=== PATIENT | male | born 1970 | race Two or more races ===

== ENCOUNTER 2025-02-28 09:25 | Inpatient (IN) | payer OTHER, SELFPAY ==
[2025-02-28] VITALS (9 sets, daily range): BP systolic 119–152; BP diastolic 79–97; PULSE 60–83; RESP 15–99; TEMP 36–37.3; O2SAT 96–100; BMI 28.5; BMI 28.3
--- NOTE | 2025-02-28 09:26 | PC.NURSE ---
PT ARRIVED BY AMBULANCE AT 0925 WITH C/O SUDDEN ONSET DIZZINESS AT 0730. DR. STANLEY IN ROOM TO EVALUATE PT AND PT STATING WOKE AT 0705 AND WAS DIZZY UPON GETTING OUT OF BED. HS PREVIOUS CVA. PT C/O FEELING UNSTEADY SITTING AND STANDING.
--- NOTE | 2025-02-28 09:34 | PD.EDDIZZY ---
ED Dizzyness RME/HPI General Chief Complaint: Dizziness Stated Complaint: SUDDEN ONSET DIZZINESS Time Seen by Provider: 02/28/25 09:35 Arrival date/time: 02/28/25 09:25 Limitations: no limitations RME / HPI RME / HPI Narrative: 54 year old male with history of TIA, CVA and underwent PFO closure surgery presents to the ED BIBA from home for evaluation of sudden onset dizziness beginning shortly after waking this morning. Patient states he woke at ~ 07:00 AM today and felt at his usual state of health, no dizziness. However, noted when he got up to use the restroom at ~ 07:10 AM, he suddenly became dizzy. Described as a room spinning sensation to the left and feeling unsteady on his feet. Additionally reported checking his watch that measures his heart rate during that time and was in the 50's. No falls reported. Denies fevers, recent illness, ear pain, chest pain, cough, shortness of breath, abdominal pain, vomiting, diarrhea, or other associated symptoms/complaints. Patient additionally reported after his PFO closure surgery he had a follow up echocardiogram 1 year ago and told it was closed. Also had a follow up appointment with drying room attendant 2 weeks ago and told everything looked good . Related Data Home Medications ?Medication ?Instructions ?Recorded ?Confirmed No Known Home Medications 01/26/22 01/26/22 Allergies Allergy/AdvReac Type Severity Reaction Status Date / Time No Known Allergies Allergy Verified 02/28/25 10:08 Review of Systems Review of Systems Systems Reviewed: All systems reviewed, normal except as documented Past Medical History Past Medical History NEUROLOGIC: Positive Cerebrovascular Accident CARDIAC: Positive Cardiac Arrhythmia; Negative Congestive Heart Failure RESPIRATORY: Negative Chronic Obstructive Pulmonary Disease (COPD) GENITOURINARY: Negative Renal Disease ENDOCRINE: Negative Diabetes Mellitus Type 1 or Diabetes Mellitus Type 2 Social History SMOKING STATUS: Never smoker ED Exam General Limitations: Present no limitations General appearance: Present alert and in no apparent distress Head Head exam: Present atraumatic, normocephalic and normal inspection Eye Eye exam: Present normal appearance, PERRL and EOMI; Absent nystagmus ENT ENT exam: Present normal exam, normal oropharynx and mucous membranes moist Neck Neck exam: Present normal inspection, full ROM and trachea midline Chest Chest inspection: Present normal inspection and symmetric chest wall rise Respiratory Respiratory exam: Present normal lung sounds bilaterally Cardiovascular Cardiovascular exam: Present regular rate, normal rhythm and normal heart sounds Abdominal Exam Abdominal exam: Present soft and normal bowel sounds Extremities Exam Extremities exam: Present normal inspection and full ROM Back Exam Back exam: Present normal inspection and full ROM Neurological Exam Neurological exam: Present alert, oriented X3 and CN II-XII intact; Absent motor sensory deficit Psychiatric Psychiatric exam: Present normal affect and normal mood Skin Skin exam: Present warm, dry, intact and normal color Course Quality Measures Suspected type of Stroke: Acute Ischemic (subacute right posterior frontal cva ) Last known well (date): 02/28/25 Last known well (time): 07:00 Tenecteplase given: Reason(s) TPA not given: H/O intracranial hemorrhage, neoplasm, AVM, or aneurysm not given stroke (Stroke alert activated at 09:29 AM. ) Orders Category Date Time Status Bedside Blood Glucose NOW Care 02/28/25 09:35 Active COVID-19 Screening Questionnaire NOW Care 02/28/25 10:20 Active Senior Analyst Programmer NOW Care 02/28/25 09:35 Active Continuous Pulse Oximetry NOW Care 02/28/25 09:35 Completed Decision to Admit X1 Care 02/28/25 10:20 Completed EKG (ED ONLY) *Do not use* NOW Care 02/28/25 09:35 Completed Insert IV NOW Care 02/28/25 09:35 Active NIH Stroke Scale now Care 02/28/25 09:35 Active NPO NOW Care 02/28/25 09:35 Active Neuro Check Q15MIN Care 02/28/25 09:35 Active Nurse Swallow Screen x1 Care 02/28/25 09:35 Active Consult to Neurology / Tele-Neurology Routine Cons 02/28/25 09:[address] angio stroke protocol Stat Exams 02/28/25 09:[address] stroke protocol Stat Exams 02/28/25 09:35 Completed EKG (ED Only) Stat Exams 02/28/25 09:35 Draft Alcohol, Blood Medical Stat Lab 02/28/25 08:45 Completed CBC Stat Lab 02/28/25 08:45 Completed Comprehensive Metabolic Panel Stat Lab 02/28/25 08:45 Completed Drug Screen,Urine Stat Lab 02/28/25 09:35 Ordered Magnesium Stat Lab 02/28/25 08:45 Completed Partial Thromboplastin Time Stat Lab 02/28/25 08:45 Completed Prothrombin Time with INR Stat Lab 02/28/25 08:45 Completed Troponin I Stat Lab 02/28/25 08:45 Completed Urinalysis Stat Lab 02/28/25 09:35 Ordered Urine Culture Stat Lab 02/28/25 09:35 Ordered Aspirin Med 02/28/25 10:19 Discontinued 325 mg PO X1 ONE Meclizine HCl [Antivert] Med 02/28/25 10:22 Discontinued 25 mg PO X1 ONE Ondansetron Inj [Zofran Inj] Med 02/28/25 09:35 Active 4 mg IVP Q4HR PRN Sodium Chloride 0.9% 1000 ml [Ns] 1,000 ml Med 02/28/25 09:45 Active IV 100 mls/hr Sodium Chloride 0.9% 1000 ml [Ns] 1,000 ml Med 02/28/25 09:45 Discontinued IV Q10H Vital Signs Vital signs: Vital Signs Temperature 98.5 F 02/28/25 09:30 Pulse Rate 74 02/28/25 09:30 Respiratory Rate 20 02/28/25 09:30 Blood Pressure 152/97 H 02/28/25 09:30 Pulse Oximetry (%) 98 02/28/25 09:30 Oxygen Delivery Method Room Air 02/28/25 09:30 Pulse ox is 98% on room air which is adequate. Dizziness MDM Narrative MDM Narrative:: Yeny Basilio am scribing for and in the presence of Dr. Patel. Patient data External records reviewed:: [facility] previous records (I reviewed ED Visit on 01/26/2022, diagnosed with TIA. ) and EMS form Clinical information provided by:: patient and EMS Social determinants that could affect healthcare access:: none Patient has the following chronic illnesses:: TIA, CVA and underwent PFO closure surgery How is presenting disease/condition affected by chronic disease/condition?: exacerbated by Evaluation data The following diagnostics were reviewed and interpreted by me:: lab results, radiology exam(s) and EKG tracing(s) (02/28/2025 @ 10:08 AM. Sinus rhythm, rate 61, no STEMI, MO 198 ms, QRS 97 ms, QT/QTc 419/423 ms. ) Lab and/or radiology exams considered but not ordered:: None Interpretation Summary: Ordering Physician: Date of Service: Procedure(s): Accession Number(s): cc: ~ CT scan of the head without intravenous contrast (axial sections with sagittal and coronal reformats) February 28, 2025 0940 hours Clinical history: Focal neuro deficit, stroke suspected. Dizziness No prior study is available for comparison. Findings: There is no evidence of intracranial hemorrhage, mass effect or midline shift. Encephalomalacia in the right temporoparietal region. There are periventricular white matter hypodensities, compatible with chronic small vessel ischemia. The ventricles, basal cisterns and sulci are within normal limits. The calvarium is unremarkable. The mastoid air cells are clear. Polyp versus cyst in the left maxillary sinus. Impression: No evidence of intracranial hemorrhage, mass effect or midline shift. If there are persistent clinical symptoms or additional clinical concerns, consider MRI. Encephalomalacia in the right temporoparietal region which related to chronic right middle cerebral artery territory infarct. Periventricular chronic small vessel ischemia and volume loss. Discussion Details: Results verbally communicated to : Dr. Patel at 10:03 AM 02/28/2025 Report Electronically Signed By: Eran Boogie 02/28/2025 10:12:29 AM [EST] Ordering Physician: Murray Patel MD Date of Service: 02/28/25 Procedure(s): CT angio stroke protocol Accession Number(s): [id number] cc: Murray Patel MD; Ronak Montoya MD; NO PRIMARY/FAMILY,PHYSICIAN~ Examination: CTA carotids with intravenous contrast CTA brain, head with intravenous contrast. 2-D sagittal, coronal reconstructions. 3-D reconstructions. Exam date and time: February 28, 2025 0943 hrs. Indications: Stroke alert, onset sudden dizziness this a.m. focal neurologic deficit, CT brain scan today demonstrates large old stroke in the right middle cerebral artery distribution CTDI: vol (mGy) 32.1 DLP: (mGycm) 517 Technique: Multiple CTA axial brain, head carotid images post intravenous contrast injection 100 cc, [id number]. 2-D sagittal, coronal reconstructions. 3-D reconstructions, 3-D post processing including vascular maximum intensity projection images. Low dose protocols were performed. One or more of the following dose reduction techniques were used; automated exposure control, adjustment of the mA and/or KV according to patient size, use of iterative reconstruction technique. Findings: 50% stenosis proximal 10 mm right vertebral artery Atretic left vertebral artery with no definite stenoses Common carotid arteries carotid bifurcations and internal carotid arteries in the neck demonstrate no significant stenoses Intracranial vertebral arteries basilar artery and posterior cerebral branches do fill Basilar artery is diffusely reduced in caliber Juxtasellar supraclinoid portions internal carotid arteries do fill as well as M1 segments middle cerebral arteries Decreased filling right middle cerebral artery trifurcation vessels consistent with the patient's large old infarct in the right middle cerebral artery distribution Anterior cerebral arteries demonstrate no large vessel occlusions Impression: 50% stenosis proximal 10 mm right vertebral artery Attenuated left vertebral artery without definite critical stenoses No significant common carotid carotid bifurcation or internal carotid artery stenoses in the neck Decreased filling right middle cerebral artery trifurcation branches consistent with patient's history large old infarct right middle cerebral artery distribution Basilar artery is diffusely reduced in caliber but not excluded No cerebral large vessel arterial occlusions Dictated By:Ronak Montoya MD Signed By:<Electronically signed by Ronak Montoya MD in OV>02/28/25 1030 Medications / Prescriptions Medications or Prescriptions considered but not ordered:: None Medication administrations:: Medication Administration History Sodium Chloride (Ns) 1,000 mls @ 100 mls/hr IV .Q10H MYNOR Stop: 03/30/25 09:44 Last Admin: 02/28/25 10:08 Dose: 100 mls/hr Documented By: WILMER Ondansetron HCl (Ondansetron Inj 2 Mg/Ml Inj 2 Ml) 4 mg IVP Q4HR PRN PRN Reason: NAUSEA OR VOMITING Stop: 03/30/25 09:34 Last Admin: 02/28/25 10:12 Dose: 4 mg Documented By: GM Discontinued Medications Aspirin (Aspirin 325 Mg Tablet) 325 mg PO X1 ONE Stop: 02/28/25 10:20 Last Admin: 02/28/25 10:38 Dose: 325 mg Documented By: WILMER Sodium Chloride (Ns) 1,000 mls @ 100 mls/hr IV Q10H MYNOR Stop: 03/30/25 09:44 Meclizine HCl (Meclizine Hcl 25 Mg Tablet) 25 mg PO X1 ONE Stop: 02/28/25 10:23 Last Admin: 02/28/25 10:38 Dose: 25 mg Documented By: WILMER See above Consultations Consultation(s) initiated? (list below): Yes Consultation #1 (Physician, Specialty, Details): I spoke with teleneurologist who reports dry head CT negative for ICH. Time: 10:05 Consultation #2 (Physician, Specialty, Details): I spoke with teleneurologist who reviewed CTs, reports patient had right posterior frontal lobe subacute stroke. Advised starting on Aspirin. Time: 10:08 Consultation #3 (Physician, Specialty, Details): I spoke with resident working with Dr. Morrell. Discussed patients PMHx, HPI, ED course, exam findings, labs, and radiology results. The hospitalist agree to accept the patient for admission. Time: 10:17 Diagnosis Most likely diagnosis given after review of the tests above:: Subacute right posterior frontal lobe CVA Admission Indicated Admission indicated?: indicated Admission Request Was there a request for admission?: Yes Admission Attestation Admission request attestation: Discussed case with [] from Hospitalist service regarding admission. Discussed patients ED course, exam findings, labs, and radiology results. The Hospitalist [agrees,declines] to accept the patient for admission. Disposition Plan Disposition Plan: Admit Critical Care Time Critical Care Time Critical Care Time: Yes Total Critical Care Time (min.): 45 Attestation: The high probability of sudden, clinically significant deterioration in the patient's condition required the highest level of my preparedness to intervene urgently. The services I provided to this patient were to treat and/or prevent clinically significant deterioration. Services included the following: chart data review, reviewing nursing notes and/or old charts, documentation time, help desk consultant collaboration regarding findings and treatment options, medication orders and management, direct patient care, vital sign assessments and ordering, interpreting and reviewing diagnostic studies and lab tests. Aggregate critical care time includes only time during which I was engaged in work directly related to the patient's care, as described above, whether at bedside or elsewhere in the Emergency Department. It did not include time spent performing other reported procedures or the services of residents, students, nurses or physician assistants. Discharge Plan Plan Patient Disposition: Admit Acute Care w/in Hospital Prescriptions/Referrals Prescriptions/Med Rec: No Action No Known Home Medications Problem List Clinical Impression: Acute cerebrovascular accident (CVA) Patient/Caregiver Discharge Instructions Print Language: Latvian Stand Alone Forms: [facility] Award Info., Patient Portal Info Letter
--- NOTE | 2025-02-28 09:35 | XR_ITS ---
Examination: CT brain head without contrast. 2-D sagittal coronal reconstructions Date and time of exam:0940 hrs. Comparison January 26, 2022 Indications: Stroke alert, onset dizziness, focal neurologic deficit today CTDI: vol (mGy):48.8 DLP: (mGycm):1166 Technique: Multiple CT axial sections of the brain have been obtained, 5 mm slice thickness. Contrast has not been administered. 2-D sagittal, coronal reconstructions have been obtained Low dose protocols were performed. One or more of the following dose reduction techniques were used; automated exposure control, adjustment of the mA and/or KV according to patient size, use of iterative reconstruction technique. Findings: No significant ventricular enlargement. Encephalomalacia consistent with large old infarct right middle cerebral artery distribution Intra-axial or extra-axial hemorrhage density is not seen. No mass effect or midline shift Basal cisterns are not remarkable. Fourth ventricle is midline. Cranial vault intact. Impression: Negative for acute hemorrhage, mass effect or midline shift
--- NOTE | 2025-02-28 09:35 | EKG_ITS ---
[facility] Test Date: 2025-02-28 Pat Name: DEZ GOOD Department: Room: - Gender: Male Development Technical Lead: : 1970 Requested By: Murray Steele Order Number: [id number] Reading MD: Murray Steele Measurements Intervals [place] Rate: 61 P: 37 NC: 198 QRS: 40 QRSD: 97 T: 48 QT: 419 QTc: 425 Interpretive Statements SINUS RHYTHM Compared to ECG 01/12/2024 17:50:02 No significant changes /store/S0/[id number]/ecg/[id number].pdf
[2025-02-28 09:54] LABS: Basophils % (Auto) 0 % (0-2.5); Eosinophils # (Auto) 0.1 Thou/mm3 (0.0-0.5); Eosinophils % (Auto) 1 % (0-10); Hemoglobin 16.9 g/dL (13.5-16.0); Immature Granulocytes % (Auto) 0 % (0-0); Immature Granulocytes Auto 0.01 Thou/mm3 (0.00-0.00); Lymphocytes # (Auto) 1.4 Thou/mm3 (1.0-4.8); Lymphocytes % (Auto) 26 % (10-50); Mean Corpuscular HGB Conc 34.5 g/dl (31.0-37.0); Mean Corpuscular Hemoglobin 33.2 pg (25.0-35.0); Mean Corpuscular Volume 96 fL (80-100); Monocytes # (Auto) 0.4 Thou/mm3 (0.0-0.8); Monocytes % (Auto) 7 % (0-12); Neutrophils # (Auto) 3.6 Thou/mm3 (1.8-7.7); Neutrophils % (Auto) 66 % (37-80); Nucleated Red Blood Cell % 0 /100 WBC (0); Platelet Count 191 Thou/mm3 (140-440); RDW Standard Deviation 44.8 fL (35.1-43.9); Red Blood Count 5.09 Miln/mm3 (4.50-5.90); White Blood Count 5.5 Thou/mm3 (3.8-10.6)
[2025-02-28] MEDS: SODIUM CHLORIDE 0.9% 1000 ML 1,000 ML 100 ML IV (10:08)
[2025-02-28] MEDS: ONDANSETRON INJ 2 MG/ML INJ 2 ML 4 MG IVP (10:12)
--- NOTE | 2025-02-28 10:13 | PRELIM_ITS ---
CT scan of the head without intravenous contrast (axial sections with sagittal and coronal reformats) February 28, 2025 0940 hours Clinical history: Focal neuro deficit, stroke suspected. Dizziness No prior study is available for comparison. Findings: There is no evidence of intracranial hemorrhage, mass effect or midline shift. Encephalomalacia in the right temporoparietal region. There are periventricular white matter hypodensities, compatible with chronic small vessel ischemia. The ventricles, basal cisterns and sulci are within normal limits. The calvarium is unremarkable. The mastoid air cells are clear. Polyp versus cyst in the left maxillary sinus. Impression: No evidence of intracranial hemorrhage, mass effect or midline shift. If there are persistent clinical symptoms or additional clinical concerns, consider MRI. Encephalomalacia in the right temporoparietal region which related to chronic right middle cerebral artery territory infarct. Periventricular chronic small vessel ischemia and volume loss. Discussion Details: Results verbally communicated to : Dr. Patel at 10:03 AM 02/28/2025 Report Electronically Signed By: Eran Boogie 02/28/2025 10:12:29 AM [EST]
--- NOTE | 2025-02-28 10:13 | PC.NURSE ---
PER DR. HILARIO, TELENEUROLOGIST, PT NOT A CANDIDATE FOR THROMBOLYTICS AT THIS TIME.
[2025-02-28 10:15] LABS: Alanine Aminotransferase 15 U/L (10-49); Albumin, Serum 4.1 gm/dL (3.5-5.0); Albumin/Globulin Ratio 1.3 (1.2-2.2); Alcohol, Blood Medical < 10.0 mg/dL (0-10.0); Alkaline Phosphatase 47 U/L (46-116); Anion Gap 9 (7-16); Aspartate Amino Transferase 26 U/L (0-34); BUN/Creatinine Ratio 9 Ratio (12-20); Bilirubin,Total 0.7 mg/dL (0.3-1.2); Blood Urea Nitrogen 9 mg/dL (9-23); Calcium 8.9 mg/dL (8.3-10.6); Calcium (Corrected) 8.9 mg/dL (8.5-10.1); Carbon Dioxide 27.2 mMol/L (20.0-31.0); Chloride 105 mMol/L (98-107); Estimated Creatinine Clearance 98.8 mL/min (>60); Globulin 3.1 gm/dL (2.3-3.5); Glucose 111 mg/dL (74-106); Magnesium 2.1 mg/dL (1.6-2.6); Osmolality,Calculated 280 (275-295); Potassium 4.6 mMol/L (3.4-5.1); Sodium 141 mMol/L (136-145); Total Protein 7.2 gm/dL (5.7-8.2); Troponin I 0.022 ng/mL (0.0-0.045); eGFR > 60 See Note
[2025-02-28 10:19] LABS: Partial Thromboplastin Time 28.4 Seconds (22.0-36.0); Prothrombin Time 11.3 Seconds (9.0-12.2)
--- NOTE | 2025-02-28 10:21 | ESCONSULT_ITS ---
Tele Neuro Consultation Consultation Date 02/28/25 Most Recent Vital Signs Last Vital Signs Temp 98.5 F 02/28/25 09:30 Pulse 74 02/28/25 09:30 Resp 20 02/28/25 09:30 BP 152/97 H 02/28/25 09:30 Pulse Ox 98 02/28/25 09:30 O2 Del Method Room Air 02/28/25 09:30 Laboratory-Coagulation Panel PT 11.3 Seconds (9.0-12.2) 02/28/25 08:45 INR 1.0 (0.9-1.3) 02/28/25 08:45 APTT 28.4 Seconds (22.0-36.0) 02/28/25 08:45 Consultation Narrative [facility] Tele[facility]urology Consult Services Patient Name:???Dom Wall Date of :???1970 Identification Number:??? Date of Service:???02/28/2025 09:31:03 Diagnosis:?A88.1 - Epidemic vertigo (Sudden Onset Vertigo) ?I63.89 - Cerebrovascular accident (CVA) due to other mechanism ([facility]) Impression: ?54YOM with a PMHx of a previous L cerebellar subdural hematoma as well as a suspected L occipital ischemic stroke 2021, patent foramen ovale s/p closure, presenting with acute onset severe positional vertigo. Exam grossly noncontributory; however, imaging demonstrated an age indeterminate (likely subacute to chronic) right frontal-temporal cortical hypodensity consistent with an ischemic stoke. On comparing imaging from 2021 and today, no evidence of any hypodensity or acute ischemic process involving the R hemisphere; however, timeframe inconsistent for today's symptoms given degree of hypodensity. Thus, recommend empirically treating as a new ischemic stroke with recommendation for admission and further stroke workup. Our recommendations are outlined below. Recommendations: ? Stroke/Telemetry Floor ? Neuro Checks (Q4) ? Bedside Swallow Eval ? DVT Prophylaxis ? IV Fluids, Normal Saline ? Head of Bed 30 Degrees ? Euglycemia and Avoid Hyperthermia (PRN Acetaminophen) ? Initiate or continue Aspirin 325 MG daily ?Goal normotensive with PRN medications for BP exceeding 180/110 ?MRI brain wo contrast ?Start [id number] daily for now ?Transthoracic Echo w bubble study ?TSH, A1C< Lipid panel, B12 ?Meclizine 25mg PO as needed for vertigo symptoms ?PT/OT eval Sign Out: ? Discussed with Emergency Department Provider Advanced Imaging: CTA Head and Neck Completed. LVO:No Patient is not a candidate for APURVA Metrics: Last Known Well: 02/28/2025 07:00:00 Dispatch Time: 02/28/2025 09:31:03 Arrival Time: 02/28/2025 09:25:00 Initial Response Time: 02/28/2025 09:39:45Symptoms: Sudden onset dizziness. Initial patient interaction: 02/28/2025 09:42:02 NIHSS Assessment Completed: 02/28/2025 09:48:10Patient is not a candidate for Thrombolytic. Thrombolytic Medical Decision: 02/28/2025 09:48:11Patient was not deemed candidate for Thrombolytic because of following reasons: History of previous intracranial hemorrhage, intracranial neoplasm . Significant head trauma or stroke in previous [address] Head: I personally reviewed all the CT images that were available to me and it showed: a RIGHT frontal-parietal cortical hypodensity consistent with a subacute ischemic stroke with no blood products or early ischemic changes Primary Provider Notified of Diagnostic Impression and Management Plan on: 02/28/2025 10:07:43 History of Present Illness:Patient is a 54 year old Male. Patient was brought by EMS for symptoms of Sudden onset dizziness. 54YOM with a PMHx of a previous LEFT cerebellar subdural hemorrhage 2021 with no residual deficits, previous PFO s/p closure, presenting to the [place] ED in the setting of sudden onset dizziness. Per patient, woke up today at 0700 and was asymptomatic while supine; on attempting to sit up, he noticed a sudden onset of room spinning sensation towards the L side, which improved significantly while patient was sitting quietly and still. Denies any unsteadiness or lightheadedness. Past Medical History: ?Stroke ?There is no history of Diabetes Mellitus ?There is no history of Atrial Fibrillation ?There is no history of Seizures Medications: No Anticoagulant use? Antiplatelet use:?Yes?ASA81 Reviewed EMR for current medications Allergies:? Reviewed Social History: Smoking: No Drug Use: No Family History: There is no family history of premature cerebrovascular disease pertinent to this consultation ROS : 14 Points Review of Systems was performed and was negative except mentioned in HPI. Past Surgical History: There Is No Surgical History Contributory To Today?s Visit Examination: BP(152/97),?Pulse(74),?Blood Glucose(123) 1A: Level of Consciousness - Alert; keenly responsive?+ 0 1B: Ask Month and Age - Both Questions Right?+ 0 1C: Blink Eyes & Squeeze Hands - Performs Both Tasks?+ 0 2: Test Horizontal Extraocular Movements - Normal?+ 0 3: Test Visual Chew - No Visual Loss?+ 0 4: Test Facial Palsy (Use Grimace if Obtunded) - Normal symmetry?+ 0 5A: Test Left Arm Motor Drift - No Drift for 10 Seconds?+ 0 5B: Test Right Arm Motor Drift - No Drift for 10 Seconds?+ 0 6A: Test Left Leg Motor Drift - No Drift for 5 Seconds?+ 0 6B: Test Right Leg Motor Drift - No Drift for 5 Seconds?+ 0 7: Test Limb Ataxia (FNF/Heel-Martinez) - No Ataxia?+ 0 8: Test Sensation - Normal; No sensory loss?+ 0 9: Test Language/Aphasia - Normal; No aphasia?+ 0 10: Test Dysarthria - Normal?+ 0 11: Test Extinction/Inattention - No abnormality?+ 0 NIHSS Score:?0 NIHSS Free Text :?No lateral or torsional nystagmus. No ataxia on heel to martinez or finger to nose testing bilaterally Pre-Morbid Modified [place] Scale:0 Points = No symptoms at all Spoke with :?Dr Patel This consult was conducted in real time using interactive audio and video technology. Patient was informed of the technology being used for this visit and agreed to proceed. Patient located in hospital and provider located at home/office setting. Patient is being evaluated for possible acute neurologic impairment and high probability of imminent or life-threatening deterioration. I spent total of 25 minutes providing care to this patient, including time for face to face visit via telemedicine, review of medical records, imaging studies and discussion of findings with providers, the patient and/or family. Dr Laith Hunter [facility] For Inpatient follow-up with [facility] physician please call [facility] at . As we are not an outpatient service for any post hospital discharge needs please contact the hospital for assistance. If you have any questions for the [facility] physicians or need to reconsult for clinical or diagnostic changes please contact us via [facility] at .
[2025-02-28] MEDS: Aspirin 325 MG TABLET PO (10:38)
[2025-02-28] MEDS: MECLIZINE HCL 25 MG TABLET PO (10:38)
[2025-02-28 11:41] LABS: Collection Type, Urine Catheter; Squamous Epithelial Cell,Urine 0 /hpf (0-5); WBC,Urine 0 /hpf (0-5)
[2025-02-28 11:53] LABS: Bilirubin,Urine Negative (Negative); Blood,Urine Negative (Negative); Clarity,Urine Clear (Clear/Hazy); Color,Urine Colorless (Lt Yel-Yel); Glucose, Urine Negative (Negative); Ketones,Urine Negative (Negative); Leukocyte Esterase,Urine Negative (Negative); Nitrite,Urine Negative (Negative); PH,Urine 7.5 (5.0-7.0); Protein,Urine Negative (Neg - Trace); RBC,Urine 4 /hpf (0-3); Specific Gravity,Urine 1.033 (1.001-1.035); Urobilinogen,Urine Negative mg/dL (0.0-1.0)
[2025-02-28 12:00] LABS: Amphetamine/Methamp Scrn,U Negative (Negative); Barbiturate Screen,Urine Negative (Negative); Benzodiazepines Screen,Urine Negative (Negative); Benzoylecgonine Screen, Ur Negative (Negative); Fentanyl Screen,Urine Negative (Negative); Opiate Screen,Urine Negative (Negative); THC Screen,Urine Negative (Negative)
--- NOTE | 2025-02-28 12:24 | PD.RESHP ---
Documentation for date of: 02/28/25 [facility] History of Present Illness History of present illness: Mr. Wall is a 54-year-old male with past medical history significant for ischemic stroke in 2021, history of TIA and patent foramen ovale s/p closure presents to the ED after having an episode of severe dizziness. Patient states he woke up this morning around 7 AM and when he got out of bed he experienced severe dizziness and felt like the entire room around him was spinning. Patient held onto furniture around the house therefore denies any syncopal episode and ground-level fall. Patient denies any acute changes in his visions other than Pt complains of flashing light in his right eye when eye is closed, denies any changes to his speech or weakness in upper or lower extremities. Pt also denies noticing any facial asymmetry. However patient states that for the past 2 to 3 days he have noticed that his right-sided vision was slightly blurry. Patient denies any other associated symptoms. Patient denies any chest pain, palpitations, any diarrhea or recent illness or any recent travels. Patient states he continues to have dizziness while sitting in the ED bed however it is worse when he stands up. Patient does have a history of ischemic stroke in 2022 however he denies any residual deficits other than frequent headaches which he states his neurologist told him that he would experience that. Pt has been regularly following up with neurology and has been taking aspirin 81mg daily. Patient is a Jehovah witness therefore requested strictly no blood transfusions and would like to be DNR and DNI. ED course In the ED patient's initial blood pressure was 152/97, pulse 74, respirations 20 and saturating on room air. CBC is unremarkable with the exception of hemoglobin 16.9, coagulation is within normal limits and chemistry, urinalysis and urine tox are all unremarkable. CT of head is negative for acute hemorrhage, mass effect or midline shift. Did show encephalomalacia consistent with large old infarct right middle cerebral artery distribution CTA of head and neck: 50% stenosis proximal 10 mm right vertebral artery, attenuated left vertebral artery without definitive critical stenosis, decreased filling right middle cerebral artery trifurcation branches consistent with patient's history of large old infarct right MCA distribution, basilar artery is diffusely reduced in caliber but not excluded EKG is sinus rhythm with no significant changes, rate 61 and QTc 425 Telemetry neurology telemetry neurologist was consulted in the ED In the ED patient was given 1 L bolus of normal saline, Zofran x 1, aspirin 325 mg p.o. x 1, meclizine 25 mg p.o. x1 PMH: Hx of ischemic stroke and TIA PSH: transcatheter PFO closure SH: Denies alcohol, tobacco or illicit drug use Home Meds: Aspirin 81mg daily Review of Systems Review of Systems Systems Reviewed: All systems reviewed, normal except as documented Exam Vital Signs Temp Pulse Resp BP Pulse Ox O2 Del Method 98.6 F 65 19 139/88 H 98 Room Air 02/28/25 12:20 02/28/25 12:20 02/28/25 12:20 02/28/25 12:20 02/28/25 12:20 02/28/25 12:20 Narrative Exam GENERAL: A&Ox3 . middle aged man, well groomed, pleasant and cooperative, Awake, Not in acute distress HEENT: Atraumatic, Normocephalic. mucous membranes moist. Eyes open, symmetrical, & clear HEART: Normal Heart Sounds LUNGS: Clear to auscultation with no wheezing or crackles. ABDOMEN: soft, non-distended, non-tender, bowel sounds heard, no guarding or rebound tenderness SKIN: No Rash or ecchymoses EXTREMITIES: No edema, tenderness, able to move all 4 extremities, pedal pulses palpated NEURO:? ? MENTAL STATUS:?AAOx3 ? LANG/SPEECH: Fluent, intact naming, repetition & comprehension ? CRANIAL NERVES: ? II: Pupils equal and reactive, no RAPD, blurry vision in the right eye and fundus ? III, IV, : EOM intact, no gaze preference or deviation ? V: normal ? VII: no facial asymmetry ? VIII: normal hearing to speech ? MOTOR: 5/5 in both upper and lower extremities ? SENSORY: Normal to touch, temperature & pin prick in all extremiteis ? COORD: Normal finger to nose and heel to soares, no tremor Results: Labs 03/01/25 04:49 03/01/25 04:49 Labs: Short CBC 02/28/25 Range/Units 08:45 WBC 5.5 (3.8-10.6) Thou/mm3 Hgb 16.9 H (13.5-16.0) g/dL Hct 49.0 (41.0-53.0) % Plt Count 191 (140-440) Thou/mm3 BMP 02/28/25 08:45 Sodium 141 Potassium 4.6 Chloride 105 Carbon Dioxide 27.2 BUN 9 Creatinine 1.0 Glucose 111 H Calcium 8.9 Cardiac Enzymes 02/28/25 Range/Units 08:45 Troponin I 0.022 (0.0-0.045) ng/mL Liver Function 02/28/25 Range/Units 08:45 Total Bilirubin 0.7 (0.3-1.2) mg/dL AST 26 (0-34) U/L ALT 15 (10-49) U/L Alkaline Phosphatase 47 (46-116) U/L Albumin 4.1 (3.5-5.0) gm/dL Urine 02/28/25 Range/Units 11:37 Urine Color Colorless A (Lt Yel-Yel) Urine Clarity Clear (Clear/Hazy) Urine pH 7.5 H (5.0-7.0) Ur Specific [place] 1.033 (1.001-1.035) Urine Protein Negative (Neg - Trace) Urine Glucose (UA) Negative (Negative) Quality Measures Quality Measures stroke (Stroke alert activated at 09:29 AM. ) Suspected type of Stroke: Acute Ischemic (subacute right posterior frontal cva ) Last known well (date): 02/28/25 Last known well (time): 07:00 Tenecteplase given: Reason(s) Tenecteplase not given: H/O intracranial hemorrhage, neoplasm, AVM, or aneurysm not given Rehab services: PT evaluation ordered and Speech Language Pathology eval ordered VTE Prophylaxis: mechanical Antithrombotic by day 2:: not indicated (describe) Statin ordered: <75 y/o high intensity dose Anticoagulation ordered for A-fib or flutter (current or hx): not indicated Medications Home Medications and Allergies Home Medications ?Medication ?Instructions ?Recorded ?Confirmed ?Type aspirin 81 mg tablet,delayed 81 mg PO .QHS 02/28/25 02/28/25 History release (Adult Low Dose Aspirin) Allergies Allergy/AdvReac Type Severity Reaction Status Date / Time No Known Allergies Allergy Verified 02/28/25 10:08 Visit Medications Aspirin (Aspirin Ec 81 Mg Tabec) 81 mg PO QDAY MYNOR Stop: 03/31/25 08:59 Atorvastatin Calcium (Atorvastatin Calcium 20 Mg Tablet) 40 mg PO HS MYNOR Stop: 03/30/25 20:59 Sodium Chloride (Ns) 1,000 mls @ 75 mls/hr IV .[id number] MYNOR Stop: 03/30/25 11:59 Ondansetron HCl (Ondansetron Inj 2 Mg/Ml Inj 2 Ml) 4 mg IVP Q4HR PRN PRN Reason: NAUSEA OR VOMITING Stop: 03/30/25 09:34 Last Admin: 02/28/25 10:12 Dose: 4 mg Ondansetron HCl (Ondansetron Inj 2 Mg/Ml Inj 2 Ml) 4 mg IVP Q6H PRN; Protocol PRN Reason: NAUSEA OR VOMITING Stop: 03/30/25 11:57 Discontinued Medications Aspirin (Aspirin 325 Mg Tablet) 325 mg PO X1 ONE Stop: 02/28/25 10:20 Last Admin: 02/28/25 10:38 Dose: 325 mg Sodium Chloride (Ns) 1,000 mls @ 100 mls/hr IV Q10H MYNOR Stop: 03/30/25 09:44 Sodium Chloride (Ns) 1,000 mls @ 100 mls/hr IV .Q10H MYNOR Stop: 03/30/25 09:44 Last Admin: 02/28/25 10:08 Dose: 100 mls/hr Meclizine HCl (Meclizine Hcl 25 Mg Tablet) 25 mg PO X1 ONE Stop: 02/28/25 10:23 Last Admin: 02/28/25 10:38 Dose: 25 mg Assessment & Plan Plan Mr. Wall is a 54-year-old male with past medical history significant for ischemic stroke in 2021, history of TIA and patent foramen ovale s/p closure presents to the ED after having an episode of severe dizziness.Pt also complains of blurry vision in his right eye as well as flashing light in his right eye when eye is closed. Pt is admitted to telemetry for stroke work up. #Acute CVA rule out #Vertigo #Hx of ischemic stroke #Hx of TIA DDx: Ischemic stroke, TIA, Benign paroxysmal positional vertigo -Pt complained of dizziness, blurry vision and flashing light in his right eye when his eye is closed. -LKW: 02/28/2025 07:00:00 -NIHSS Score: 0 -pre morbid rank scale: 0 Points = No symptoms at all -Due to pt's PMH of acute CVA, per teleneurology review of the imaging demonstrated an age indeterminate (likely subacute to chronic) right frontal-temporal cortical hypodensity consistent with an ischemic stroke. Thus, recommended empirically treating as a new ischemic stroke with recommendation for admission and further stroke workup. -CT of head negative for stroke -CTA of head neck: 50% stenosis proximal 10 mm right vertebral artery, attenuated left vertebral artery without definitive critical stenosis, decreased filling right middle cerebral artery trifurcation branches consistent with patient's history of large old infarct right MCA distribution, basilar artery is diffusely reduced in caliber but not excluded Plan: - Neuro checks q4HR - Keep head of bed elevated at 30 degrees - Loading dose Aspirin 325 mg x1 given in the ED, resumed aspirin 81mg daily if patient cannot swallow safely -Statin HS ordered -?limit sedating meds - Euglycemia and Avoid Hyperthermia (PRN Acetaminophen) -?allow permissive HTN for first 24 hours than slowly and gradually goal normotension thereafter -?Urinalysis and urine tox is clean -?MRI with MRA of brain ordered -?echo with bubble study ordered - follow up lipid panel, HbA1c, TSH with free T4 - Referral to PT/OT/speech therapy - Meclizine 25mg PO TID PRN for vertigo -In house neurologist Dr. Nesbitt consulted, appreciate recommendations Health Maintenance Disposition:Telemetry for stroke rule out DVT Prophylaxis: SCD QSHIFT GI Prophylaxis: not indicated Diet: NPO, speech therapy eval ordered Lines: Peripheral lines Code status: DNR/DNI and pharmacy technician inpatient product transfusions Assessment and plan discussed with my attending physician Dr. Petros Leon (PGY-1)- Internal medicine resident Attending Provider Attestation/Addendum Face to face evaluation was performed by me. I have personally seen and examined the patient. I discussed the assessment and plan with the entire medicine team. I reviewed available medical records, imaging studies, laboratory results. I agree with the above subjective data, objective findings, assessment and plan except as corrected by me or noted below Dizziness Acute recurrent ischemic stroke History of PFO History of stroke -Teleneurology was consulted recommend admission for further stroke workup apparently the source of the acute stroke on EEG imaging already. MRI brain without contrast, cardiac echo, platelets/ST, neurology consultation. Continue antimicrobial therapy with aspirin, consider antibiotics, intensity statin as well. than > 30 minutes spent on the encounter
[2025-02-28] MEDS: SODIUM CHLORIDE 0.9% 1000 ML 1,000 ML 75 ML IV (12:33)
[2025-02-28 20:02] LABS: Vitamin B12 581 pg/mL (211-911)
[2025-02-28] MEDS: ATORVASTATIN CALCIUM 20 MG TABLET 40 MG PO (20:07)
--- NOTE | 2025-02-28 23:33 | ESPR_ITS ---
Documentation for date of: 02/28/25 Subjective Subjective Interval history: Seen in Telemetry at the bedside, no complaints noted. Denies any dz. Tolerating oral diet well, ambulating well. Exam - Neurology Vital Signs Temp Pulse Resp BP Pulse Ox O2 Del Method 97.7 F 83 20 122/79 96 Room Air 02/28/25 20:00 02/28/25 20:00 02/28/25 20:00 02/28/25 20:00 02/28/25 20:00 02/28/25 20:00 Narrative Exam GENERAL APPEARANCE: Well hydrated, well-nourished in no acute distress. HEENT: Normocephalic, atraumatic, extraocular movements intact. Pupils: Equal reacting to light and accommodation NECK: Supple, no JVD or bruits. CARDIOVASULAR: Heart: S1, S2 heard, regular without S3-S4 or murmur no rubs or gallops. LUNGS/CHEST: Clear to auscultation bilaterally. No rails, rhonchi, or wheezing. Normal inspection. ABDOMEN: Soft, nontender, with normal bowel sounds. No pulsatile masses. No rebound, rigidity, or guarding. Normal inspection and palpation. EXTREMITIES: Normal inspection and palpation. No edema, clubbing or cyanosis. SKIN: Warm and dry without rashes. Normal inspection. MUSCULOSKELETAL: No cervical, thoracic, lumbar or midline bony tenderness. Normal inspection. NEURO: Alert, awake and oriented x3. Cranial nerves: II through XII grossly intact. Speech and language: Normal with no dysarthria or dysphasia. Motor system: Tone and bulk: Normal: Strength: 5 out of 5 in all 4 extremities; No pronator drift noted. Deep tendon reflexes: 2+ bilaterally symmetrical. Plantar reflex: Downgoing bilaterally. Sensory system: Intact to all modalities of sensation bilaterally. Coordination: Intact to [id number]-[id number] and zgra-[id number]-lvga test bilaterally. No ataxia, no dysmetria, or dysdiadochokinesia noted. No intention tremors noted. Gait: Normal. Toe, heel, tandem walk all are normal. Romberg: Negative. No signs of meningeal irritation noted. PSYCHIATRIC: Normal mood and affect. Denies homicidal or suicidal ideation. Objective Labs 03/01/25 04:49 03/01/25 04:49 Labs: Laboratory Results - last 24 hr 02/28/25 02/28/2525 08:45 09:45 11:37 WBC 5.5 RBC 5.09 Hgb 16.9 H Hct 49.0 MCV 96 MCH 33.2 MCHC 34.5 RDW Std Deviation 44.8 H Plt Count 191 Neut % (Auto) 66 Lymph % (Auto) 26 [place] % (Auto) 7 Eos % (Auto) 1 Baso % (Auto) 0 Neut # (Auto) 3.6 Lymph # (Auto) 1.4 [place] # (Auto) 0.4 Eos # (Auto) 0.1 Baso # (Auto) 0.0 Immature Gran # (Auto) 0.01 H Absolute Nucleated RBC 0.00 Immature Gran % 0 Nucleated RBC % 0 PT 11.3 INR 1.0 APTT 28.4 Sodium 141 Potassium 4.6 Chloride 105 Carbon Dioxide 27.2 Anion Gap 9 BUN 9 Creatinine 1.0 Estim Creat Clear Calc 98.8 eGFR > 60 BUN/Creatinine Ratio 9 L Glucose 111 H Calculated Osmolality 280 Calcium 8.9 Corrected Calcium 8.9 Magnesium 2.1 Total Bilirubin 0.7 AST 26 ALT 15 Alkaline Phosphatase 47 Troponin I 0.022 Total Protein 7.2 Albumin 4.1 Globulin 3.1 Albumin/Globulin Ratio 1.3 Vitamin B12 581 Ur Collection Type Catheter Urine Color Colorless A Urine Clarity Clear Urine pH 7.5 H Ur Specific [place] 1.033 Urine Protein Negative Urine Glucose (UA) Negative Urine Ketones Negative Urine Blood Negative Urine Nitrite Negative Urine Bilirubin Negative Urine Urobilinogen (Auto) Negative Ur Leukocyte Esterase Negative Urine RBC 4 H Urine WBC 0 Ur Squamous Epith Cells 0 Urine Bacteria None Urine Opiates Screen Negative Urine Fentanyl Screen Negative Ur Barbiturates Screen Negative U Amphetamin/Meth Scrn Negative U Benzodiazepines Scrn Negative U Cocaine Metab Screen Negative U Marijuana (THC) Screen Negative Ethyl Alcohol < 10.0 Assessment & Plan Assessment and plan (1) TIA (transient ischemic attack): Status: Resolved Assessment and plan: Most likely TIA based on the symptom and no focal deficit FU with MRI brain (2) Old cerebrovascular accident (CVA) without late effect: Status: Chronic Assessment and plan: FU with MRI brain continue with ASA 81 mg and statin for now.
[2025-03-01] VITALS (8 sets, daily range): BP systolic 101–130; BP diastolic 74–83; PULSE 50–118; RESP 11–98; TEMP 36.1–37.1; O2SAT 96–98; BMI 29.1
--- NOTE | 2025-03-01 | XR_ITS ---
Examinations: MRI Brain without intravenous contrast. MRA brain without intravenous contrast. MRA carotids without intravenous contrast 3-D vascular reconstructions Date and time of exam: March 01, 2025 0948 hours INDICATIONS: Sudden onset dizziness yesterday Technique: Multiple axial and sagittal images of the brain have been obtained MRA brain carotid images without contrast obtained, including 3-D postprocessing, vascular maximum intensity projection images Findings: [place] is not enlarged. The optic chiasm and infundibular stalk are not remarkable. Prepontine and interpeduncular cisterns are not enlarged. No localized enlargement of the medulla or zunilda. Fourth ventricle and cerebellar tonsils normal in position. Subacute hemorrhage is not seen. Fourth ventricle is midline. Mass in the cerebellopontine angle region is not evident. 7th and 8th nerve complexes exhibits symmetry. Globes are symmetrical with no retro-orbital mass. Increased white matter signal evident, large old infarct right middle cerebral artery distribution, additional punctate foci increased signal in the white matter Diffusion-weighted images demonstrate no focus of restricted diffusion Mass-effect upon the ventricular system is not identified. MRA carotid images no carotid stenoses. MRA brain images no large vessel cerebral occlusions Impression: Negative for acute hemorrhage mass effect or midline shift No acute infarct Large old infarct right middle cerebral artery distribution. Multiple punctate foci increased signal in the white matter on the FLAIR images, demyelinating disease pattern
[2025-03-01 05:52] LABS: Basophils % (Auto) 0 % (0-2.5); Eosinophils # (Auto) 0.1 Thou/mm3 (0.0-0.5); Eosinophils % (Auto) 2 % (0-10); Hematocrit 46.5 % (41.0-53.0); Immature Granulocytes % (Auto) 0 % (0-0); Immature Granulocytes Auto 0.01 Thou/mm3 (0.00-0.00); Lymphocytes # (Auto) 2.1 Thou/mm3 (1.0-4.8); Lymphocytes % (Auto) 33 % (10-50); Mean Corpuscular HGB Conc 34.4 g/dl (31.0-37.0); Mean Corpuscular Hemoglobin 33.5 pg (25.0-35.0); Mean Corpuscular Volume 97 fL (80-100); Monocytes # (Auto) 0.5 Thou/mm3 (0.0-0.8); Monocytes % (Auto) 8 % (0-12); Neutrophils # (Auto) 3.6 Thou/mm3 (1.8-7.7); Neutrophils % (Auto) 56 % (37-80); Nucleated Red Blood Cell % 0 /100 WBC (0); Platelet Count 198 Thou/mm3 (140-440); RDW Standard Deviation 45.3 fL (35.1-43.9); Red Blood Count 4.78 Miln/mm3 (4.50-5.90); White Blood Count 6.4 Thou/mm3 (3.8-10.6)
[2025-03-01 06:16] LABS: Anion Gap 6 (7-16); BUN/Creatinine Ratio 7 Ratio (12-20); Blood Urea Nitrogen 8 mg/dL (9-23); Chloride 105 mMol/L (98-107); Creatinine (Component) 1.1 mg/dL (0.6-1.3); Estimated Creatinine Clearance 91.3 mL/min (>60); Glucose 102 mg/dL (74-106); Sodium 140 mMol/L (136-145); eGFR > 60 See Note
[2025-03-01 06:17] LABS: Alanine Aminotransferase 16 U/L (10-49); Albumin, Serum 3.8 gm/dL (3.5-5.0); Albumin/Globulin Ratio 1.4 (1.2-2.2); Alkaline Phosphatase 47 U/L (46-116); Aspartate Amino Transferase 22 U/L (0-34); Bilirubin,Total 0.6 mg/dL (0.3-1.2); Calcium 8.9 mg/dL (8.3-10.6); Calcium (Corrected) 9.1 mg/dL (8.5-10.1); Cardiac Risk Estimate 4.5 RATIO (4.0-6.7); Cholesterol 198 mg/dL (132-200); Free T4 (Free Thyroxine) 1.26 ng/dL (0.89-1.76); Globulin 2.8 gm/dL (2.3-3.5); HDL Cholesterol 44 mg/dL (40-60); LDL Cholesterol,Calculated 124 mg/dL (0-130); Magnesium 2.2 mg/dL (1.6-2.6); Osmolality,Calculated 277 (275-295); Phosphorous 3.1 mg/dL (2.4-5.1); Thyroid Stimulating Hormone 2.55 uIU/mL (0.55-4.78); Total Protein 6.6 gm/dL (5.7-8.2); Triglycerides 151 mg/dL (30-150)
[2025-03-01 06:32] LABS: Glucose Estimated Average 97 mg/dL (80-131)
[2025-03-01] MEDS: CLOPIDOGREL BISULFATE 75 MG TABLET PO (08:50)
[2025-03-01] MEDS: ASPIRIN EC 81 MG TABEC PO (08:50)
[2025-03-01] MEDS: MECLIZINE HCL 25 MG TABLET PO (08:51)
--- NOTE | 2025-03-01 11:27 | ESPR_ITS ---
Documentation for date of: 03/01/25 Subjective Subjective Interval history: No acute overnight events reported. Pt is seen and examined at bedside this morning. Pt endorses to significant improvement in his symptoms however continues to have mild vertigo, worse when he gets out of bed. denies any changes in speech, denies weakness. Pt underwent MRI, which did not show any new acute changes. Pending recs from neuro, pending echo and PT. Will continue to monitor. Pt has no complaints at this time. Vitals are stable and labs are unremarkable. Exam Vital Signs Temp Pulse Resp BP Pulse Ox O2 Del Method 98.7 F 58 L 18 110/80 98 Room Air 03/01/25 08:00 03/01/25 08:00 03/01/25 08:00 03/01/25 08:00 03/01/25 08:00 03/01/25 08:00 Narrative Exam GENERAL: A&Ox3 . middle aged man, well groomed, pleasant and cooperative, Awake, Not in acute distress HEENT: Atraumatic, Normocephalic. mucous membranes moist. Eyes open, symmetrical, & clear HEART: Normal Heart Sounds LUNGS: Clear to auscultation with no wheezing or crackles. ABDOMEN: soft, non-distended, non-tender, bowel sounds heard, no guarding or rebound tenderness SKIN: No Rash or ecchymoses EXTREMITIES: No edema, tenderness, able to move all 4 extremities, pedal pulses palpated NEURO:? ? MENTAL STATUS:?AAOx3 ? LANG/SPEECH: Fluent, intact naming, repetition & comprehension ? CRANIAL NERVES: ? II: Pupils equal and reactive, no RAPD, blurry vision in the right eye is improved ? III, IV, : EOM intact, no gaze preference or deviation ? V: normal ? VII: no facial asymmetry ? VIII: normal hearing to speech ? MOTOR: 5/5 in both upper and lower extremities ? SENSORY: Normal to touch, temperature & pin prick in all extremiteis ? COORD: Normal finger to nose and heel to soares, no tremor Objective Labs 03/01/25 04:49 03/01/25 04:49 Labs: Laboratory Results - last 24 hr 02/28/25 02/28/25 03/01/25 09:45 11:37 04:49 WBC 6.4 RBC 4.78 Hgb 16.0 Hct 46.5 MCV 97 MCH 33.5 MCHC 34.4 RDW Std Deviation 45.3 H Plt Count 198 Neut % (Auto) 56 Lymph % (Auto) 33 [place] % (Auto) 8 Eos % (Auto) 2 Baso % (Auto) 0 Neut # (Auto) 3.6 Lymph # (Auto) 2.1 [place] # (Auto) 0.5 Eos # (Auto) 0.1 Baso # (Auto) 0.0 Immature Gran # (Auto) 0.01 H Absolute Nucleated RBC 0.00 Immature Gran % 0 Nucleated RBC % 0 Sodium 140 Potassium 4.0 D Chloride 105 Carbon Dioxide 29.0 Anion Gap 6 L BUN 8 L Creatinine 1.1 Estim Creat Clear Calc 91.3 eGFR > 60 BUN/Creatinine Ratio 7 L Glucose [address] Glu mg/dL 97 Hemoglobin A1c 5.0 Calculated Osmolality 277 Calcium 8.9 Corrected Calcium 9.1 Phosphorus 3.1 Magnesium 2.2 Total Bilirubin 0.6 AST 22 ALT 16 Alkaline Phosphatase 47 Total Protein 6.6 Albumin 3.8 Globulin 2.8 Albumin/Globulin Ratio 1.4 Triglycerides 151 H Cholesterol 198 LDL Cholesterol, Calc 124 HDL Cholesterol 44 Cholesterol/HDL Ratio 4.5 Vitamin B12 581 TSH 2.55 Free T4 1.26 Ur Collection Type Catheter Urine Color Colorless A Urine Clarity Clear Urine pH 7.5 H Ur Specific [place] 1.033 Urine Protein Negative Urine Glucose (UA) Negative Urine Ketones Negative Urine Blood Negative Urine Nitrite Negative Urine Bilirubin Negative Urine Urobilinogen (Auto) Negative Ur Leukocyte Esterase Negative Urine RBC 4 H Urine WBC 0 Ur Squamous Epith Cells 0 Urine Bacteria None Urine Opiates Screen Negative Urine Fentanyl Screen Negative Ur Barbiturates Screen Negative U Amphetamin/Meth Scrn Negative U Benzodiazepines Scrn Negative U Cocaine Metab Screen Negative U Marijuana (THC) Screen Negative Quality Measures Quality Measures stroke (Stroke alert activated at 09:29 AM. ) Suspected type of Stroke: Acute Ischemic (subacute right posterior frontal cva ) Last known well (date): 02/28/25 Last known well (time): 07:00 Tenecteplase given: Reason(s) Tenecteplase not given: H/O intracranial hemorrhage, neoplasm, AVM, or aneurysm not given Rehab services: PT evaluation ordered VTE Prophylaxis: mechanical Antithrombotic by day 2:: ordered Statin ordered: <75 y/o high intensity dose Anticoagulation ordered for A-fib or flutter (current or hx): not indicated Assessment & Plan Assessment Current Active Medications: Generic Name Dose Route Start Last Admin Trade Name Freq PRN Reason Stop Dose Admin Aspirin 81 mg 03/01/25 09:00 03/01/25 08:50 Aspirin Ec 81 Mg Tabec PO 03/31/25 08:59 81 mg QDAY MYNOR Administration Atorvastatin Calcium 40 mg 02/28/25 21:00 02/28/25 20:07 Atorvastatin Calcium 20 Mg Tablet PO 03/30/25 20:59 40 mg HS MYNOR Administration Clopidogrel Bisulfate 75 mg 03/01/25 09:00 03/01/25 08:50 Clopidogrel Bisulfate 75 Mg Tablet PO 03/31/25 08:59 75 mg QDAY MYNOR Administration Meclizine HCl 25 mg 02/28/25 14:41 03/01/25 08:51 Meclizine Hcl 25 Mg Tablet PO 03/30/25 14:40 25 mg TID PRN Administration VERTIGO Ondansetron HCl 4 mg 02/28/25 11:58 Ondansetron Inj 2 Mg/Ml Inj 2 Ml IVP 03/30/25 11:57 Q6H PRN NAUSEA OR VOMITING Protocol Plan Mr. Wall is a 54-year-old male with past medical history significant for ischemic stroke in 2021, history of TIA and patent foramen ovale s/p closure presents to the ED after having an episode of severe dizziness.Pt also complains of blurry vision in his right eye as well as flashing light in his right eye when eye is closed. Pt is admitted to telemetry for stroke work up. #Acute CVA rule out #Vertigo #Hx of ischemic stroke #Hx of TIA DDx: Ischemic stroke, TIA, Benign paroxysmal positional vertigo -Pt complained of dizziness, blurry vision and flashing light in his right eye when his eye is closed. -LKW: 02/28/2025 07:00:00 -NIHSS Score: 0 -pre morbid rank scale: 0 Points = No symptoms at all -Due to pt's PMH of acute CVA, per teleneurology review of the imaging demonstrated an age indeterminate (likely subacute to chronic) right frontal- temporal cortical hypodensity consistent with an ischemic stroke. Thus, recommended empirically treating as a new ischemic stroke with recommendation for admission and further stroke workup. -CT of head negative for stroke -CTA of head neck: 50% stenosis proximal 10 mm right vertebral artery, attenuated left vertebral artery without definitive critical stenosis, decreased filling right middle cerebral artery trifurcation branches consistent with patient's history of large old infarct right MCA distribution, basilar artery is diffusely reduced in caliber but not excluded -?MRI with MRA of brain: Negative for acute hemorrhage mass effect or midline shift, No acute infarct, Large old infarct right middle cerebral artery distribution. Multiple punctate foci increased signal in the white matter on the FLAIR images demyelinating disease pattern Plan: - Neuro checks q4HR - Keep head of bed elevated at 30 degrees - Loading dose Aspirin 325 mg x1 given in the ED, resumed aspirin 81mg daily if patient cannot swallow safely -Plavix 75mg daily ordered -Statin HS ordered -?limit sedating meds - Euglycemia and Avoid Hyperthermia (PRN Acetaminophen) -?allow permissive HTN for first 24 hours than slowly and gradually goal normotension thereafter -?Urinalysis and urine tox is clean -?echo with bubble study ordered - lipid panel, HbA1c, TSH with free T4 is WNL - Referral to PT/OT/speech therapy - Meclizine 25mg PO TID PRN for vertigo -In house neurologist Dr. 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 Petros Leon (PGY-1)- Internal medicine resident Attending Provider Attestation/Addendum Face to face evaluation was performed by me. I have personally seen and examined the patient. I discussed the assessment and plan with the entire medicine team. I reviewed available medical records, imaging studies, laboratory results. I agree with the above subjective data, objective findings, assessment and plan except as corrected by me or noted below Dizziness Acute recurrent ischemic stroke History of PFO History of stroke Pending MRI brain, cardiac echo, neurology recommendations. Added Plavix on baby aspirin continue high-intensity statin follow-up with neurology recommendations, PT eval. than > 30 minutes spent on the encounter
--- NOTE | 2025-03-01 11:58 | ECHO_ITS ---
Transthoracic Echo Report Ht (in): 71 Wt (lb): 205 Exam Location: Echo Lab Status: Inpatient Decorator Lighting Fixtures: Carla Whiet Indications: Procedure Performed: BP: 117 / 83 HR: 64 Technical Quality: Adequate MEASUREMENTS (Male / Female) Normal Values 2D ECHO LV Diastolic Diameter PLAX 4.0 cm 4.2 - 5.9 / 3.9 - 5.3 cm LV Systolic Diameter PLAX 3.1 cm IVS Diastolic Thickness 0.6 cm 0.6 - 1.0 / 0.6 - 0.9 cm LVPW Diastolic Thickness 0.9 cm 0.6 - 1.0 / 0.6 - 0.9 cm LV Relative Wall Thickness 0.4 LVOT Diameter 2.0 cm LA Volume Index 26.1 cm?/m? 16 - 28 cm?/m? Ascending Aorta Diameter 3.0 cm DOPPLER AV Peak Velocity 121.0 cm/s AV Peak Gradient 5.9 mmHg LVOT Peak Velocity 104.0 cm/s LVOT Peak Gradient 4.3 mmHg AV Area Cont Eq pk 2.7 cm? MV Area PHT 2.8 cm? Mitral E Point Velocity 63.5 cm/s Mitral A Point Velocity 59.2 cm/s Mitral E to A Ratio 1.1 LV E' Lateral Velocity 11.9 cm/s Mitral E to LV E' Lateral Ratio 5.3 LV E' Septal Velocity 9.3 cm/s Mitral E to LV E' Septal Ratio 6.9 PV Peak Velocity 78.5 cm/s PV Peak Gradient 2.5 mmHg FINDINGS Left Ventricle Normal left ventricular size, wall thickness, systolic function with no obvious regional wall motion abnormalities. . The ejection fraction is visually estimated at 55 %. 1cm echogenic structure seenleft ventricular apex suspicious for possible mural thrombus Right Ventricle The right ventricle is normal in size and systolic function. The estimated right ventricular systolic pressure can not be determined due to inadequate Doppler signal. Left Atrium The left atrium is normal by two-dimensional, color flow and Doppler imaging with no structural abnormalities, no thrombus formation present. Right Atrium The right atrium is mildly dilated. Atrial Septum Agitated saline bubble study negative for PFO/ASD. Septal occluder noted with no flow crossing the atrial septum per saline/Doppler. Aorta The aorta is normal by two-dimensional, color flow and Doppler interrogation. Mitral Valve The mitral valve is normal by two-dimensional, color flow and Doppler interrogation. There is trace mitral regurgitation. Aortic Valve The aortic valve is trileaflet and normal by two-dimensional, color flow and Doppler interrogation. There is trace aortic regurgitation. Tricuspid Valve The tricuspid valve is normal by two-dimensional, color flow and Doppler interrogation. There is trace tricuspid regurgitation. Pulmonic Valve The pulmonic valve is not well visualized. There is no significant pulmonic valve regurgitation. Vessels The pulmonary artery appears normal. The inferior vena cava pulmonary and hepatic veins appear normal. Pericardium The pericardium is normal by two-dimensional imaging. There is no significant pericardial effusion. CONCLUSIONS Indications: Stroke Normal LV size and function. Possible LV mural thrombus 1 cm size noted in the apex. Bubble study negative for PFO/ASD. Trace mitral and trace tricuspid regurgitation No pericardial effusion. Moira Bunch (Electronically Signed) Final Date: 02 March 2025 09:14
--- NOTE | 2025-03-01 14:05 | PC.PT ---
PT eval only. Patient is safe to ambulate to the bathroom and in the halls with no AD or staff assist. RN made aware.
[2025-03-01] MEDS: ACETAMINOPHEN 325 MG TABLET 650 MG PO (15:22)
--- NOTE | 2025-03-01 16:20 | PC.SS ---
Follow up note: Waiting for MRI and Neurology recommendations.
[2025-03-01] MEDS: ATORVASTATIN CALCIUM 20 MG TABLET 40 MG PO (20:30)
--- NOTE | 2025-03-01 22:52 | ESPR_ITS ---
Documentation for date of: 03/01/25 Subjective Subjective Interval history: Seen in Telemetry at the bedside, no complaints noted. Denies any dz. Tolerating oral diet well, ambulating well. Exam - Neurology Vital Signs Temp Pulse Resp BP Pulse Ox O2 Del Method 96.9 F 67 11 L 119/83 96 Room Air 03/01/25 20:00 03/01/25 20:00 03/01/25 20:00 03/01/25 20:00 03/01/25 20:00 03/01/25 20:00 Objective Labs 03/01/25 04:49 03/01/25 04:49 Labs: Laboratory Results - last 24 hr 03/01/25 04:49 WBC 6.4 RBC 4.78 Hgb 16.0 Hct 46.5 MCV 97 MCH 33.5 MCHC 34.4 RDW Std Deviation 45.3 H Plt Count 198 Neut % (Auto) 56 Lymph % (Auto) 33 [place] % (Auto) 8 Eos % (Auto) 2 Baso % (Auto) 0 Neut # (Auto) 3.6 Lymph # (Auto) 2.1 [place] # (Auto) 0.5 Eos # (Auto) 0.1 Baso # (Auto) 0.0 Immature Gran # (Auto) 0.01 H Absolute Nucleated RBC 0.00 Immature Gran % 0 Nucleated RBC % 0 Sodium 140 Potassium 4.0 D Chloride 105 Carbon Dioxide 29.0 Anion Gap 6 L BUN 8 L Creatinine 1.1 Estim Creat Clear Calc 91.3 eGFR > 60 BUN/Creatinine Ratio 7 L Glucose [address] Glu mg/dL 97 Hemoglobin A1c 5.0 Calculated Osmolality 277 Calcium 8.9 Corrected Calcium 9.1 Phosphorus 3.1 Magnesium 2.2 Total Bilirubin 0.6 AST 22 ALT 16 Alkaline Phosphatase 47 Total Protein 6.6 Albumin 3.8 Globulin 2.8 Albumin/Globulin Ratio 1.4 Triglycerides 151 H Cholesterol 198 LDL Cholesterol, Calc 124 HDL Cholesterol 44 Cholesterol/HDL Ratio 4.5 TSH 2.55 Free T4 1.26 Assessment & Plan Assessment and plan (1) TIA (transient ischemic attack): Status: Resolved Assessment and plan: Most likely TIA based on the symptom and no focal deficit and negative MRI brain for acute infarction continue ASA, increase to 162 mg for prophylaxis and add statin to bring the LDL down to 70 mg. As he had subdural bleed and the old bleed noted in the MRI brain, plavix is not safe. (2) Old cerebrovascular accident (CVA) without late effect: Status: Chronic Assessment and plan: MRI brain findings consistent with old infarct with hemosiderin deposition from old bleed Scattered white matter changes suggestive of chronic microvascular disease or migraine and Not significant for demyelination.
[2025-03-02] VITALS (8 sets, daily range): BP systolic 107–125; BP diastolic 56–91; PULSE 51–108; RESP 14–98; TEMP 36.1–36.4; O2SAT 96–99; BMI 29.2
--- NOTE | 2025-03-02 04:51 | PC.NURSE ---
pt refused blood draw this am, explanation given per MD order, pt verbalized understanding but still refused.
[2025-03-02] MEDS: ASPIRIN EC 81 MG TABEC PO (08:18)
--- NOTE | 2025-03-02 09:53 | PC.SS ---
Dom Wall is a 54-year-old male admitted to [facility] for CVA R/O. SS conducted bedside contact with the patient to complete initial assessment and to discuss discharge planning. Role and reason explained. Patient confirmed demographic information. Patient identifies his uncle Salomon Monk [phone] as his surrogate decision maker. Pt states he is able to complete all ADL?s independent. Pt does not possesses any DME. Pts PCP is Ricardo Machado last visit was about 1 year ago. Pharmacy of choice is [facility]. Discharge options discussed and the pt wishes to return home. Pt family will provide transport at the time of DC. No further intervention required at this time, pediatric social worker would be available to address any further concerns. DC Plan: Home Contact: Salomon Gee PCP: Carter
--- NOTE | 2025-03-02 10:52 | ESPR_ITS ---
Documentation for date of: 03/02/25 Subjective Subjective Interval history: No acute overnight events reported. Patient seen and examined at bedside this morning patient continues to have mild dizziness however otherwise endorses to significant improvement in his symptoms. Per neurology recommendation will discontinue Plavix as patient has a history of subdural hematoma as per imaging however patient does not recall any history of subdural hematoma. Will increase aspirin to 162 mg daily. Patient's echo showed a possible left ventricle mural thrombus therefore we will consult cardio for possible CATHIE to confirm. Patient is made aware and agrees with the plan of care. Patient has no other complaints. Vitals are stable patient is saturating on room air and labs are reviewed. Exam Vital Signs Temp Pulse Resp BP Pulse Ox O2 Del Method 97 F 58 L 14 119/82 98 Room Air 03/02/25 08:00 03/02/25 08:00 03/02/25 08:00 03/02/25 08:00 03/02/25 08:00 03/02/25 08:00 Narrative Exam GENERAL: A&Ox3 . middle aged man, well groomed, pleasant and cooperative, Awake, Not in acute distress NEURO: no focal neurological deficit noted HEENT: Atraumatic, Normocephalic. mucous membranes moist. Eyes open, symmetrical, & clear HEART: Normal Heart Sounds LUNGS: Clear to auscultation with no wheezing or crackles. ABDOMEN: soft, non-distended, non-tender, bowel sounds heard, no guarding or rebound tenderness SKIN: No Rash or ecchymoses EXTREMITIES: No edema, tenderness, able to move all 4 extremities, pedal pulses palpated Objective Labs 03/01/25 04:49 03/01/25 04:49 Quality Measures Quality Measures stroke (Stroke alert activated at 09:29 AM. ) Suspected type of Stroke: Acute Ischemic (subacute right posterior frontal cva ) Last known well (date): 02/28/25 Last known well (time): 07:00 Tenecteplase given: Reason(s) Tenecteplase not given: H/O intracranial hemorrhage, neoplasm, AVM, or aneurysm not given Rehab services: PT evaluation ordered and Speech Language Pathology eval ordered VTE Prophylaxis: pharmaceutical Antithrombotic by day 2:: contraindicated (describe) (per neuro eval of imagining, pt has history of subdural hematoma ) Statin ordered: <75 y/o high intensity dose Anticoagulation ordered for A-fib or flutter (current or hx): not indicated Assessment & Plan Assessment Current Active Medications: Generic Name Dose Route Start Last Admin Trade Name Freq PRN Reason Stop Dose Admin Acetaminophen 650 mg 03/01/25 15:06 03/01/25 15:22 Acetaminophen 325 Mg Tablet PO 03/31/25 15:05 650 mg Q6HR PRN Administration pain and Fever >100.3 Aspirin 162 mg 03/03/25 09:00 Aspirin Ec 81 Mg Tabec PO 04/02/25 08:59 QDAY MYNOR Atorvastatin Calcium 40 mg 02/28/25 21:00 03/01/25 20:30 Atorvastatin Calcium 20 Mg Tablet PO 03/30/25 20:59 40 mg HS MYNOR Administration Meclizine HCl 25 mg 02/28/25 14:41 03/01/25 08:51 Meclizine Hcl 25 Mg Tablet PO 03/30/25 14:40 25 mg TID PRN Administration VERTIGO Ondansetron HCl 4 mg 02/28/25 11:58 Ondansetron Inj 2 Mg/Ml Inj 2 Ml IVP 03/30/25 11:57 Q6H PRN NAUSEA OR VOMITING Protocol Plan Mr. Wall is a 54-year-old male with past medical history significant for ischemic stroke in 2021, history of TIA and patent foramen ovale s/p closure presents to the ED after having an episode of severe dizziness.Pt also complains of blurry vision in his right eye as well as flashing light in his right eye when eye is closed. Pt is admitted to telemetry for stroke work up. #?Left ventricular mural thrombus -Echo from 03/01/25 showed possible LV mural thrombus 1 cm size noted in the apex. Ejection fraction is visually estimated at 55 %. -Will ordered CATHIE to confirm mural thrombus and/or other valvular abnormalities -Consult to cardiology placed, appreciate recommendations #Vertigo- improved #Acute CVA -ruled out #Hx. of PFO s/p closure #Hx of ischemic stroke #Hx of TIA DDx: Ischemic stroke, TIA, Benign paroxysmal positional vertigo -Pt complained of dizziness, blurry vision and flashing light in his right eye when his eye is closed. -LKW: 02/28/2025 07:00:00 -NIHSS Score: 0 -pre morbid rank scale: 0 Points = No symptoms at all -Due to pt's PMH of acute CVA, per teleneurology review of the imaging demonstrated an age indeterminate (likely subacute to chronic) right frontal- temporal cortical hypodensity consistent with an ischemic stroke. Thus, recommended empirically treating as a new ischemic stroke with recommendation for admission and further stroke workup. -CT of head negative for stroke -CTA of head neck: 50% stenosis proximal 10 mm right vertebral artery, attenuated left vertebral artery without definitive critical stenosis, decreased filling right middle cerebral artery trifurcation branches consistent with patient's history of large old infarct right MCA distribution, basilar artery is diffusely reduced in caliber but not excluded -?MRI with MRA of brain: Negative for acute hemorrhage mass effect or midline shift, No acute infarct, Large old infarct right middle cerebral artery distribution. Multiple punctate foci increased signal in the white matter on the FLAIR images demyelinating disease pattern Plan: - Neuro checks q4HR - Keep head of bed elevated at 30 degrees - Loading dose Aspirin 325 mg x1 given in the ED, - Aspirin 162mg daily - Discontinued Plavix 75mg daily due to MRI evidence of previous hx.of subdural hematoma -Statin HS ordered -?limit sedating meds - Euglycemia and Avoid Hyperthermia (PRN Acetaminophen) -?allow permissive HTN for first 24 hours than slowly and gradually goal normotension thereafter -?Urinalysis and urine tox is clean -?echo with bubble study - negative bubble study, possible LV mural thrombus - lipid panel, HbA1c, TSH with free T4 is WNL - Referral to PT/OT/speech therapy - Meclizine 25mg PO TID PRN for vertigo -In house neurologist Dr. Nesbitt consulted, appreciate recommendations Health Maintenance Disposition:Telemetry for stroke rule out DVT Prophylaxis: SCD QSHIFT GI Prophylaxis: not indicated Diet: cardiac diet Lines: Peripheral lines Code status: DNR/DNI and no BLOOD product transfusions Assessment and plan discussed with my attending physician Dr. Petros Leon (PGY-1)- Internal medicine resident Attending Provider Attestation/Addendum Face to face evaluation was performed by me. I have personally seen and examined the patient. I discussed the assessment and plan with the entire medicine team. I reviewed available medical records, imaging studies, laboratory results. I agree with the above subjective data, objective findings, assessment and plan except as corrected by me or noted below TIA History of ischemic CVA History of PFO status postclosure/surgery Possible left ventricular thrombus seen on TTE -Neurology was consulted appreciate help recommendations are to double aspirin to 162 mg daily and stop Plavix. Continue high intensity statin Cardiology consultation for possible CATHIE considering TTE results?possible left ventricular mural thrombus. More than > 30 minutes spent on the encounter
--- NOTE | 2025-03-02 11:00 | ESCONSULT_ITS ---
HPI Data of Consult Requesting Physician: Juan Morrell MD Admitting Provider: Juan Morrell MD Attending Provider: Juan Morrell MD Primary Care Provider: Ricardo Machado Consult Narrative History of present illness: CC: Shortness of Breath Patient is a 54-year-old [place] with a past medical history right middle cerebral artery stroke (2021), TIA (2022), and PFO closure at [facility] by Dr. Ezekiel Méndez (2021), and who is currently following Dr. Melendez in [place]. Patient presented to the emergency room on 02/28/2025 via EMS with chief complain of sudden dyspnea. Patient initially stated experienced acute onset of shortness of breath upon exertion on Saturday morning at approximately 7 AM. Patient denied paroxysmal nocturnal dyspnea and denied orthopnea. Does sleep with 2 pillows but not use to help him breathe better. Patient stated this was the first time he experienced shortness of breath upon exertion. Patient also stated dizziness with shortness of breath. Patient noted increased hearing loss left ear. Patient denied tinnitus. Patient denied syncopal event. Patient denied seizure-like activities. Denied any palpitations. Holter monitor within the last 2 years showed no arrhythmias per patient history. Patient denied any chest pain or chest pressure. Positive for nausea during shortness of breath and dizziness. Denied emesis. Patient also felt cold and clammy. Denied any recent sick contacts. Denied any hematochezia or melena. Denied hypercoagulable workup or family history. Patient was admitted by hospitalist team from stroke rule out. 03/02/2025: Cardiology Consulted for possible CATHIE for LV mural thrombus noted on echo. PMH: -Stroke (2021) TIA (2022) -PFO closure (05/03/2022) by Dr. Dodd ([facility]) using Amplatzer PFO Occluder 25 mm right atrial disc/18 left atrial disc diameter Past Surgical History: -PFO Closure 05/03/2022 Past Family History: Paternal Parent -HTN, Diabetes, from brain aneurysm Maternal Parent -brain aneurysm diagnosed at age 81 Sister-brain aneurysm s/p coil Home Medication: Aspirin 81 mg qday Social History: Never Smoker Denied illicit drug use Denied Alcohol Use works for [employer] Allergies: none cc:: cc: Juan Morrell MD Review of Systems Review of Systems Narrative Review of Systems: General appearance: NO weight change, NO fatigue, NO weakness, NO fever, NO chills, NO night sweats, No cough Skin: NO rash, NO itching, NO sores, NO moles HEENT: NO Trauma, YES nausea, NO vomiting, NO visual changes, NO blurry vision, NO double vision, NO tinnitus, YES vertigo, NO ear discharge, NO rhinorrhea, NO stuffiness, NO sneezing, NO allergy, NO epistaxis. NO Hoarseness, NO sore throat, NO swollen neck. Cardiac: NO Palpitations, YES dyspnea on exertion, NO orthopnea, NO paroxysmal nocturnal dyspnea, NO edema Respiratory: NO Shortness of Breath, NO Wheezing, NO Cough, NO Sputum, NO hemoptysis GI:NO appetite, NO nausea, NO vomiting, NO dysphagia, NO changes in bowel frequency, NO stool color, NO diarrhea, NO constipation, NO hemetemesis, NO hemorrhoids, NO melena, NO hematechezia, NO abdominal pain, NO jaundice Renal: NO frequency, NO hesitancy, NO urgency, NO hematuria, NO nocturia, NO incontinence MSK: NO muscle weakness, NO gout, NO arthritis, NO muscle stiffness Neuro: NO headaches, NO tremors, NO weakness, NO paralysis, NO seizures, NO loss of consciousness, NO numbness. History of Stroke & TIA. Hem: NO anemia, NO easy bruising/bleeding, NO petechiae, NO purpura Endo: NO heat/cold intolerance, NO excessive sweating, NO polyuria, NO polydipsia, NO polyphagia, NO thyroid problems, NO diabetes Pysch: NO mood, NO anxiety, NO depression Exam Vital Signs Temp Pulse Resp BP Pulse Ox O2 Del Method 97 F 58 L 14 119/82 98 Room Air 03/02/25 08:00 03/02/25 08:00 03/02/25 08:00 03/02/25 08:00 03/02/25 08:00 03/02/25 08:00 Narrative Exam General Appearance: Alert & Oriented X3, well-nourished female who is lying in bed in no acute distress HEENT: Skull symmetrical and atraumatic. Conjunctivae pin and moist. Pupils equal, round, reactive to light and accommodation (PERRL). External ear without lesion or discharge. Straight, nares patient, mucosa pink, no discharge. Cardio: Normal Rate and Rhythm with S1 and S2 heart sounds. No murmurs or extra heart sounds auscultated. No bruits on carotid auscultation. No peripheral edema or cyanosis. Lungs: Symmetric with good expansion. Chest and back non-tender. Breath sounds vesicular without crackles, wheezing or rhonchi Abdomen: Non-tender, Non-distended, Normal Reactive Bowel Sounds Neuro: Alert, cooperative, oriented to person, place, and time. Speech clear. CN grossly intact. Upper motor strength 5/5 and Lower motor strength 5/5. Sensation intact. Results Labs 03/01/25 04:49 03/01/25 04:49 Quality Measures Quality Measures stroke (Stroke alert activated at 09:29 AM. ) Suspected type of Stroke: Acute Ischemic (subacute right posterior frontal cva ) Last known well (date): 02/28/25 Last known well (time): 07:00 Tenecteplase given: Reason(s) Tenecteplase not given: H/O intracranial hemorrhage, neoplasm, AVM, or aneurysm not given Rehab services: PT evaluation ordered and Speech Language Pathology eval ordered VTE Prophylaxis: pharmaceutical Antithrombotic by day 2:: ordered Statin ordered: <75 y/o high intensity dose Anticoagulation ordered for A-fib or flutter (current or hx): not indicated Medications Home Medications and Allergies Home Medications ?Medication ?Instructions ?Recorded ?Confirmed ?Type aspirin 81 mg tablet,delayed 81 mg PO .QHS 02/28/25 History release (Adult Low Dose Aspirin) Allergies Allergy/AdvReac Type Severity Reaction Status Date / Time No Known Allergies Allergy Verified 02/28/25 10:08 Visit Medications Acetaminophen (Acetaminophen 325 Mg Tablet) 650 mg PO Q6HR PRN PRN Reason: pain and Fever >100.3 Stop: 03/31/25 15:05 Last Admin: 03/01/25 15:22 Dose: 650 mg Aspirin (Aspirin Ec 81 Mg Tabec) 162 mg PO QDAY MYNOR Stop: 04/02/25 08:59 Atorvastatin Calcium (Atorvastatin Calcium 20 Mg Tablet) 40 mg PO HS MYNOR Stop: 03/30/25 20:59 Last Admin: 03/01/25 20:30 Dose: 40 mg Meclizine HCl (Meclizine Hcl 25 Mg Tablet) 25 mg PO TID PRN PRN Reason: VERTIGO Stop: 03/30/25 14:40 Last Admin: 03/01/25 08:51 Dose: 25 mg Ondansetron HCl (Ondansetron Inj 2 Mg/Ml Inj 2 Ml) 4 mg IVP Q6H PRN; Protocol PRN Reason: NAUSEA OR VOMITING Stop: 03/30/25 11:57 Discontinued Medications Aspirin (Aspirin 325 Mg Tablet) 325 mg PO X1 ONE Stop: 02/28/25 10:20 Last Admin: 02/28/25 10:38 Dose: 325 mg Aspirin (Aspirin Ec 81 Mg Tabec) 81 mg PO QDAY MYNOR Stop: 03/31/25 08:59 Last Admin: 03/02/25 08:18 Dose: 81 mg Clopidogrel Bisulfate (Clopidogrel Bisulfate 75 Mg Tablet) 75 mg PO QDAY MYNOR Stop: 03/31/25 08:59 Last Admin: 03/01/25 08:50 Dose: 75 mg Sodium Chloride (Ns) 1,000 mls @ 100 mls/hr IV Q10H MYNOR Stop: 03/30/25 09:44 Sodium Chloride (Ns) 1,000 mls @ 100 mls/hr IV .Q10H MYNOR Stop: 03/30/25 09:44 Last Infusion: 02/28/25 12:33 Dose: 0 mls/hr Sodium Chloride (Ns) 1,000 mls @ 75 mls/hr IV .[id number] MYNOR Stop: 03/30/25 11:59 Last Infusion: 02/28/25 22:47 Dose: 0 mls/hr Meclizine HCl (Meclizine Hcl 25 Mg Tablet) 25 mg PO X1 ONE Stop: 02/28/25 10:23 Last Admin: 02/28/25 10:38 Dose: 25 mg Ondansetron HCl (Ondansetron Inj 2 Mg/Ml Inj 2 Ml) 4 mg IVP Q4HR PRN PRN Reason: NAUSEA OR VOMITING Stop: 03/30/25 09:34 Last Admin: 02/28/25 10:12 Dose: 4 mg Assessment & Plan Plan Patient is a 54-year-old [place] with a past medical history right middle cerebral artery stroke (2021), TIA (2022), and PFO closure at [facility] by Dr. Ezekiel Méndez (2021) who was admitted on 02/28/2025 for stroke rule out with a chief complain of vertigo and dyspnea. #LV Thrombus Patient noted to have a possible LV thrombus. History of PFO closure, but negative bubble study on echo vs No history of Afib, continue to monitor with telemetry vs CO less likely as unremarkable troponin and EKG unremarkable vs hypercoagulable state. Given past medical history of PFO closure in 2021 at [facility], LV thrombus, and history of stroke/TIA, plan for CATHIE. EKG: Sinus Rhythm. No T wave inversion noted. Troponin <0.02 Echo(01/26/2025): Normal LV size and function. Possible LV mural thrombus 1 cm size noted in the apex. Bubble study negative for PFO/ASD.Trace mitral and trace tricuspid regurgitation. No pericardial effusion. Plan: -CATHIE, planned for 03/03/2025 -Cxr -BNP -NPO After midnight -No heparin drip at this moment -patient would benefit from hypercoagulable work as outpatient and DAVID. Additional Plan: Patient denies any kind of swallowing problems or any kind of esophageal interventions or previous surgeries. Patient denies any kind of gastric ulcers bleeding and any other hematemesis or hematochezia. Patient denies any issues with anesthesia previously. Patient explained all the risks, benefits and alternatives of CATHIE including the risk of perforation, bleeding, respiratory failure secondary to sedation, injury to teeth gums esophagus and stomach. Patient understands all risks and benefits and provided consent for the procedure. We will keep him n.p.o. overnight and plan for CATHIE in the morning. #Acute TIA #history of Stroke 2021 and TIA in 2022 #PFO closure with Amplatzer 25x18 mm device in 2021 at [facility] Patient has a past medical history of acute stroke w/ slurred speech per patient history that resolved after several months of PT/speech therapy in 2021 with no residual motor deficits. TIA in 2022 after COVID diagnosis, no residual motor deficits. PFO closure in 2021. Given past medical history, CATHIE recommended. CATHIE in 2021 negative from thrombus per patient history. MRI: Negative for acute hemorrhage mass effect or midline shift. No acute infarct. Large old infarct right middle cerebral artery distribution vs Mutiple punctate foci increased signal in the white matter on flair images, demyelinaitning disease pattern Lipid Panel (03/01/2025): Triglycerides 151, Cholesterol 198, LDL 124, HDL 44 TSH 2.55, A1c 5.0 ASCVD: high intensity statin recommended Plan -Per primary team management -Aspirin 81 mg qday -Atorvastatin 40 mg HS -Neurology consulted Health Maintenance: Disp: Pt is currently admitted to floors for further management of TIA, cardiology consulted for possible CATHIE/LV mural thrombus FEN: NPO after midnight. Plan for CATHIE on 03/03/2025 DVT: compression device Code: Full code - The patient's plan was discussed with attending Dr. Yolanda Horton MD PGY1 Internal Medicine Attending Provider Attestation/Addendum I have personally seen and examined the patient separately on the above date of service and discussed the plan of care with the resident. I reviewed the resident Dr. Mariela Horton consultation progress note and agree with the resident findings and plan in the note above and have also edited the documentation to reflect my findings and plan. A 54-year-old male who [employer] will have weakness with a past medical history of stroke in 2021, TIA in 2022, history of PFO closure at [facility] by Dr. Ezekiel Méndez in 2021 with a 25 x 18 mm Amplatzer PFO device, hyperlipidemia, family history of brain aneurysms presented to the emergency department for further evaluation of dizziness. Patient presented to the emergency department as a had sudden onset of dizziness after he woke up in the morning patient had significant dizziness when he was attempted to sit up and also had some droopiness in his vision mostly towards the left side and which improved a little bit later. Patient also had some shortness of breath and that he did not experience the symptoms earlier and came to the emergency department for further evaluation. Patient was seen by teleneurology in the emergency department further workup was ordered which showed no evidence of any acute stroke as noted below. EKG in the emergency department did show only normal sinus rhythm without any acute ST-T changes. CTA head and neck showed 50% stenosis of the proximal right vertebral artery as well as attenuated left vertebral artery decreased feeling in the right middle cerebral artery trifurcation. MRI: Negative for acute hemorrhage mass effect or midline shift. No acute infarct. Large old infarct right middle cerebral artery distribution vs Mutiple punctate foci increased signal in the white matter on flair images, demyelinaitning disease pattern Lipid Panel (03/01/2025): Triglycerides 151, Cholesterol 198, LDL 124, HDL 44 TSH 2.55, A1c 5.0 An echocardiogram was performed as part of evaluation of the stroke which showed questionable LV thrombus and cardiology was consulted for further evaluation of the same. Assessment and plan: 1. Possible LV thrombus on echocardiogram 2. Acute TIA 3. Stroke history in 2021 large right MCA infarct and TIA in 2022 4. PFO s/p closure with Amplatzer 25 x 80 mm device in 2021 at [facility] 5. Hyperlipidemia Echo was performed on 01/26/2025 as part of evaluation for the TIA. EKG and troponin were negative. Echo showed normal LV size and function with an EF of around 55 to 60%. Possible LV thrombus of 1 cm not in the apex. Bubble study was negative for any PFO or ASD. Trace MR and TR and no pericardial effusion. I reviewed the echocardiogram and echo showed normal LV size and function without no major regional wall motion abnormalities and there is an echogenic structure in LV apex cannot rule out thrombus but could be accessory papillary muscle also that could be arising from the LV. Appropriate indication for CATHIE as patient also has a PFO closure device and get reevaluated along with a good bubble study. Patient denies any kind of swallowing problems or any kind of esophageal interventions or previous surgeries. Patient denies any kind of gastric ulcers bleeding and any other hematemesis or hematochezia. Patient denies any issues with anesthesia previously. Patient explained all the risks, benefits and alternatives of CATHIE including the risk of perforation, bleeding, respiratory failure secondary to sedation, injury to teeth gums esophagus and stomach. Patient understands all risks and benefits and provided consent for the procedure. We will keep him n.p.o. overnight and plan for CATHIE in the morning. 2. History of PFO s/p closure with Amplatzer 25 mm x 8 mm device in 2021 at [facility]. Patient apparently had an echo last year with bubble study which was also negative. Bubble study here also is negative by transthoracic echo. Will evaluate and pursue PFO device with the CATHIE tomorrow morning and repeat bubble study. Patient should be on aspirin 81 mg once daily lifetime. 3. Given his history of acute stroke patient should be on high intensity statin. Patient was apparently on statin previously but was stopped by after any year. Recommend to repeat the lipid profile and patient should be on at least Lipitor 40 mg once daily. TSH and A1c were normal at 2.5-5.0 respectively. Management of rest of the medical conditions as per primary team and other consultants. Thank you for the consult and allowing me to participate in the care of the patient. Cardiology will continue to follow. Mitch Guerrero M.D. Interventional Cardiology
--- NOTE | 2025-03-02 11:47 | XR_ITS ---
Examination: AP chest single view TECHNIQUE: Upright AP chest single view Date and time: 03/02/2025 1224 hours INDICATIONS: Dyspnea today. FINDINGS: Normal heart size Lungs are clear. The osseous structures are intact IMPRESSION: No active disease
[2025-03-02] MEDS: ATORVASTATIN CALCIUM 20 MG TABLET 40 MG PO (20:31)
--- NOTE | 2025-03-02 22:03 | PD.NEUROPROG ---
Documentation for date of: 03/02/25 Subjective Subjective Interval history: Seen in Telemetry at the bedside, no complaints noted. Denies any dz. Tolerating oral diet well, ambulating well. Exam - Neurology Vital Signs Temp Pulse Resp BP Pulse Ox O2 Del Method 97.1 F 108 H 16 125/91 H 98 Room Air 03/02/25 20:00 03/02/25 20:00 03/02/25 20:00 03/02/25 20:00 03/02/25 20:00 03/02/25 20:00 Narrative Exam GENERAL APPEARANCE: Well hydrated, well-nourished in no acute distress. HEENT: Normocephalic, atraumatic, extraocular movements intact. Pupils: Equal reacting to light and accommodation NECK: Supple, no JVD or bruits. CARDIOVASULAR: Heart: S1, S2 heard, regular without S3-S4 or murmur no rubs or gallops. LUNGS/CHEST: Clear to auscultation bilaterally. No rails, rhonchi, or wheezing. Normal inspection. ABDOMEN: Soft, nontender, with normal bowel sounds. No pulsatile masses. No rebound, rigidity, or guarding. Normal inspection and palpation. EXTREMITIES: Normal inspection and palpation. No edema, clubbing or cyanosis. SKIN: Warm and dry without rashes. Normal inspection. MUSCULOSKELETAL: No cervical, thoracic, lumbar or midline bony tenderness. Normal inspection. NEURO: Alert, awake and oriented x3. Cranial nerves: II through XII grossly intact. Speech and language: Normal with no dysarthria or dysphasia. Motor system: Tone and bulk: Normal: Strength: 5 out of 5 in all 4 extremities; No pronator drift noted. Deep tendon reflexes: 2+ bilaterally symmetrical. Plantar reflex: Downgoing bilaterally. Sensory system: Intact to all modalities of sensation bilaterally. Coordination: Intact to [id number] and [id number] test bilaterally. No ataxia, no dysmetria, or dysdiadochokinesia noted. No intention tremors noted. Gait: Normal. Toe, heel, tandem walk all are normal. Romberg: Negative. No signs of meningeal irritation noted. PSYCHIATRIC: Normal mood and affect. Denies homicidal or suicidal ideation. Objective Labs 03/01/25 04:49 03/01/25 04:49 Assessment & Plan Assessment and plan (1) TIA (transient ischemic attack): Status: Resolved Assessment and plan: Most likely TIA based on the symptom and no focal deficit and negative MRI brain for acute infarction continue ASA, increase to 162 mg for prophylaxis and add statin to bring the LDL down to 70 mg. As he had subdural bleed and the old bleed noted in the MRI brain, plavix is not safe. However, as the TTE showed possible mural LV thrombus, he is going for CATHIE tomorrow to confirm the findings before deciding on appropriate management. (2) Old cerebrovascular accident (CVA) without late effect: Status: Chronic Assessment and plan: MRI brain findings consistent with old infarct with hemosiderin deposition from old bleed Scattered white matter changes suggestive of chronic microvascular disease or migraine and Not significant for demyelination.
[2025-03-03] VITALS (18 sets, daily range): BP systolic 97–143; BP diastolic 61–93; PULSE 52–72; RESP 12–98; TEMP 36.1–36.6; O2SAT 93–100; BMI 29.0
[2025-03-03 05:46] LABS: Basophils % (Auto) 0 % (0-2.5); Eosinophils # (Auto) 0.1 Thou/mm3 (0.0-0.5); Eosinophils % (Auto) 2 % (0-10); Hematocrit 50.4 % (41.0-53.0); Hemoglobin 17.3 g/dL (13.5-16.0); Immature Granulocytes % (Auto) 0 % (0-0); Immature Granulocytes Auto 0.01 Thou/mm3 (0.00-0.00); Lymphocytes # (Auto) 2.4 Thou/mm3 (1.0-4.8); Lymphocytes % (Auto) 34 % (10-50); Mean Corpuscular HGB Conc 34.3 g/dl (31.0-37.0); Mean Corpuscular Hemoglobin 33.8 pg (25.0-35.0); Mean Corpuscular Volume 98 fL (80-100); Monocytes # (Auto) 0.6 Thou/mm3 (0.0-0.8); Monocytes % (Auto) 9 % (0-12); Neutrophils # (Auto) 3.8 Thou/mm3 (1.8-7.7); Neutrophils % (Auto) 55 % (37-80); Nucleated Red Blood Cell % 0 /100 WBC (0); Platelet Count 209 Thou/mm3 (140-440); RDW Standard Deviation 44.8 fL (35.1-43.9); Red Blood Count 5.12 Miln/mm3 (4.50-5.90); White Blood Count 6.9 Thou/mm3 (3.8-10.6)
[2025-03-03 06:09] LABS: Alanine Aminotransferase 19 U/L (10-49); Albumin/Globulin Ratio 1.4 (1.2-2.2); Alkaline Phosphatase 52 U/L (46-116); Anion Gap 6 (7-16); Aspartate Amino Transferase 23 U/L (0-34); BUN/Creatinine Ratio 8 Ratio (12-20); Bilirubin,Total 0.8 mg/dL (0.3-1.2); Blood Urea Nitrogen 9 mg/dL (9-23); Carbon Dioxide 29.9 mMol/L (20.0-31.0); Chloride 104 mMol/L (98-107); Creatinine (Component) 1.2 mg/dL (0.6-1.3); Estimated Creatinine Clearance 83.5 mL/min (>60); Globulin 2.9 gm/dL (2.3-3.5); Glucose 100 mg/dL (74-106); Magnesium 2.1 mg/dL (1.6-2.6); Osmolality,Calculated 278 (275-295); Phosphorous 2.6 mg/dL (2.4-5.1); Potassium 4.4 mMol/L (3.4-5.1); Sodium 140 mMol/L (136-145); Total Protein 6.9 gm/dL (5.7-8.2); eGFR > 60 See Note
[2025-03-03 07:35] LABS: Partial Thromboplastin Time 29.6 Seconds (22.0-36.0); Prothrombin Time 11.4 Seconds (9.0-12.2)
--- NOTE | 2025-03-03 08:51 | PC.SS ---
Follow up note: CATHIE today. ECHO pending. Pt will return home upon dc.
[2025-03-03] MEDS: ASPIRIN EC 81 MG TABEC 162 MG PO (10:51)
--- NOTE | 2025-03-03 10:57 | ESPR_ITS ---
<Statement entered by Fozia Gomez MD - 03/09/25 08:54> I reviewed above note and agree with findings and plans. I have also personally examined the patient with medicine team and went over assessment and plan with medical team including marketing research intern and resident physician. Documentation for date of: 03/03/25 Subjective Subjective Interval history: No acute overnight events reported. Patient seen and examined at bedside this morning. Patient is currently n.p.o. for CATHIE scheduled for the afternoon. Patient does not have any complaints states that he is feeling great. Labs are reviewed and are unremarkable with the exception of slight polycythemia likely due to hemoconcentration in the setting of patient being n.p.o. We will continue to monitor remainder of labs are unremarkable. Will follow-up with cardiology regarding patient's CATHIE report . Exam Vital Signs Temp Pulse Resp BP Pulse Ox O2 Del Method 97.2 F 62 18 117/70 99 Room Air 03/03/25 08:00 03/03/25 08:00 03/03/25 08:00 03/03/25 08:00 03/03/25 08:00 03/03/25 08:00 Narrative Exam GENERAL: A&Ox3 . middle aged man, well groomed, pleasant and cooperative, Awake, Not in acute distress NEURO: no focal neurological deficit noted HEENT: Atraumatic, Normocephalic. mucous membranes moist. Eyes open, symmetrical, & clear HEART: Normal Heart Sounds LUNGS: Clear to auscultation with no wheezing or crackles. ABDOMEN: soft, non-distended, non-tender, bowel sounds heard, no guarding or rebound tenderness SKIN: No Rash or ecchymoses EXTREMITIES: No edema, tenderness, able to move all 4 extremities, pedal pulses palpated Objective Labs 03/03/25 04:41 03/03/25 04:41 Labs: Laboratory Results - last 24 hr 03/03/25 04:41 WBC 6.9 RBC 5.12 Hgb 17.3 H Hct 50.4 MCV 98 MCH 33.8 MCHC 34.3 RDW Std Deviation 44.8 H Plt Count 209 Neut % (Auto) 55 Lymph % (Auto) 34 [place] % (Auto) 9 Eos % (Auto) 2 Baso % (Auto) 0 Neut # (Auto) 3.8 Lymph # (Auto) 2.4 [place] # (Auto) 0.6 Eos # (Auto) 0.1 Baso # (Auto) 0.0 Immature Gran # (Auto) 0.01 H Absolute Nucleated RBC 0.00 Immature Gran % 0 Nucleated RBC % 0 PT 11.4 INR 1.0 APTT 29.6 Sodium 140 Potassium 4.4 Chloride 104 Carbon Dioxide 29.9 Anion Gap 6 L BUN 9 Creatinine 1.2 Estim Creat Clear Calc 83.5 eGFR > 60 BUN/Creatinine Ratio 8 L Glucose 100 Calculated Osmolality 278 Calcium 9.0 Corrected Calcium 9.0 Phosphorus 2.6 Magnesium 2.1 Total Bilirubin 0.8 AST 23 ALT 19 Alkaline Phosphatase 52 Total Protein 6.9 Albumin 4.0 Globulin 2.9 Albumin/Globulin Ratio 1.4 Quality Measures Quality Measures stroke (Stroke alert activated at 09:29 AM. ) Suspected type of Stroke: Acute Ischemic (subacute right posterior frontal cva ) Last known well (date): 02/28/25 Last known well (time): 07:00 Tenecteplase given: Reason(s) Tenecteplase not given: H/O intracranial hemorrhage, neoplasm, AVM, or aneurysm not given Rehab services: PT evaluation ordered and Speech Language Pathology eval ordered VTE Prophylaxis: pharmaceutical and mechanical Antithrombotic by day 2:: contraindicated (describe) Statin ordered: <75 y/o high intensity dose Anticoagulation ordered for A-fib or flutter (current or hx): not indicated Assessment & Plan Assessment Current Active Medications: Generic Name Dose Route Start Last Admin Trade Name Freq PRN Reason Stop Dose Admin Acetaminophen 650 mg 03/01/25 15:06 03/01/25 15:22 Acetaminophen 325 Mg Tablet PO 03/31/25 15:05 650 mg Q6HR PRN Administration pain and Fever >100.3 Aspirin 162 mg 03/03/25 09:00 03/03/25 10:51 Aspirin Ec 81 Mg Tabec PO 04/02/25 08:59 162 mg QDAY MYNOR Administration Atorvastatin Calcium 40 mg 02/28/25 21:00 03/02/25 20:31 Atorvastatin Calcium 20 Mg Tablet PO 03/30/25 20:59 40 mg HS MYNOR Administration Meclizine HCl 25 mg 02/28/25 14:41 03/01/25 08:51 Meclizine Hcl 25 Mg Tablet PO 03/30/25 14:40 25 mg TID PRN Administration VERTIGO Ondansetron HCl 4 mg 02/28/25 11:58 Ondansetron Inj 2 Mg/Ml Inj 2 Ml IVP 03/30/25 11:57 Q6H PRN NAUSEA OR VOMITING Protocol Plan Mr. Wall is a 54-year-old male with past medical history significant for ischemic stroke in 2021, history of TIA and patent foramen ovale s/p closure presents to the ED after having an episode of severe dizziness.Pt also complains of blurry vision in his right eye as well as flashing light in his right eye when eye is closed. Pt is admitted to telemetry for stroke work up. #?Left ventricular mural thrombus -Echo from 03/01/25 showed possible LV mural thrombus 1 cm size noted in the apex. Ejection fraction is visually estimated at 55 %. -Will ordered CATHIE to confirm mural thrombus and/or other valvular abnormalities -Consult to cardiology placed, appreciate recommendations -Will follow up with CAHTIE reports regarding mural thrombus, and then decide if pt will need to be discharged on anticoagulation or not. #Vertigo- resolved #Acute CVA -ruled out #Hx. of PFO s/p closure #Hx of ischemic stroke #Hx of TIA DDx: Ischemic stroke, TIA, Benign paroxysmal positional vertigo -Pt complained of dizziness, blurry vision and flashing light in his right eye when his eye is closed. -LKW: 02/28/2025 07:00:00 -NIHSS Score: 0 -pre morbid rank scale: 0 Points = No symptoms at all -Due to pt's PMH of acute CVA, per teleneurology review of the imaging demonstrated an age indeterminate (likely subacute to chronic) right frontal- temporal cortical hypodensity consistent with an ischemic stroke. Thus, recommended empirically treating as a new ischemic stroke with recommendation for admission and further stroke workup. -CT of head negative for stroke -CTA of head neck: 50% stenosis proximal 10 mm right vertebral artery, attenuated left vertebral artery without definitive critical stenosis, decreased filling right middle cerebral artery trifurcation branches consistent with patient's history of large old infarct right MCA distribution, basilar artery is diffusely reduced in caliber but not excluded -?MRI with MRA of brain: Negative for acute hemorrhage mass effect or midline shift, No acute infarct, Large old infarct right middle cerebral artery distribution. Multiple punctate foci increased signal in the white matter on the FLAIR images demyelinating disease pattern Plan: - Neuro checks q4HR - Keep head of bed elevated at 30 degrees - Loading dose Aspirin 325 mg x1 given in the ED, - Aspirin 162mg daily - Discontinued Plavix 75mg daily due to MRI evidence of previous hx.of subdural hematoma - Statin HS ordered -?limit sedating meds - Euglycemia and Avoid Hyperthermia (PRN Acetaminophen) -?allow permissive HTN for first 24 hours than slowly and gradually goal normotension thereafter -?Urinalysis and urine tox is clean -?echo with bubble study - negative bubble study, possible LV mural thrombus - lipid panel, HbA1c, TSH with free T4 is WNL - Referral to PT/OT/speech therapy - Meclizine 25mg PO TID PRN for vertigo - In house neurologist Dr. Nesbitt consulted, appreciate recommendations Health Maintenance Disposition:Telemetry for stroke rule out DVT Prophylaxis: SCD QSHIFT GI Prophylaxis: not indicated Diet: regular diet Lines: Peripheral lines Code status: DNR/DNI and no BLOOD product transfusions Assessment and plan discussed with my attending physician Dr. Jason Leon (PGY-1)- Internal medicine resident
--- NOTE | 2025-03-03 11:15 | ECHO_ITS ---
Transesophageal Echo Report Ht (in): 71 Wt (lb): 209 Exam Location: Echo Lab Status: Inpatient Track Repairer: Christopher Carla Indications: Procedure Performed: BP: 130 / 80 HR: 62 Technical Quality: Adequate FINDINGS Left Ventricle Normal left ventricular size, wall thickness, systolic function with no obvious regional wall motion abnormalities. The ejection fraction is visually estimated at 55 %. Accessory papillary muscle visualized. Right Ventricle The right ventricle is mildly dilated. Left Atrium The left atrium is normal by two-dimensional, color flow and Doppler imaging with no structural abnormalities, no thrombus formation present. Right Atrium The right atrium is mildly dilated. Atrial Appendages The left atrial appendage appears normal with no evidence for thrombus. Atrial Septum PFO Occluder device visualized with no flow crossing per color Doppler. Agitated saline bubble study negative for PFO/ASD. Aorta The aorta is normal by two-dimensional, color flow and Doppler interrogation. Mitral Valve The mitral valve is normal by two-dimensional, color flow and Doppler interrogation. There is mild mitral regurgitation. Aortic Valve The aortic valve is trileaflet and normal by two-dimensional, color flow and Doppler interrogation. There is trace aortic insufficiency. Tricuspid Valve The tricuspid valve is normal by two-dimensional, color flow and Doppler interrogation. There is no significant tricuspid valve regurgitation. Pulmonic Valve The pulmonic valve is normal by two-dimensional, color flow and Doppler interrogation. There is no significant pulmonic valve regurgitation. Vessels The pulmonary artery appears normal. The inferior vena cava pulmonary and hepatic veins appear normal. Pericardium The pericardium is normal by two-dimensional imaging. There is no significant pericardial effusion. CONCLUSIONS Indications: Possible LV thrombus. Echogenic mass. The echogenic mass noted in the accessory papillary muscle which actually starts at the LV apex. There is no evidence of any LV thrombus. No additional imaging studies needed. Amplatzer PFO device in place and no evidence of any leak. Bubble study was completely negative. Normal LV size and function with estimated EF 55 to 60%. Normal RV function. Mildly dilated RA. No LA or TRESA thrombus. Trace AI mild AR. No pericardial effusion. Mitch Guerrero (Electronically Signed) Final Date: 03 March 2025 15:36
[2025-03-03] MEDS: fentaNYL CIT INJ 50 mCg/ML AMP 2ML 100 MCG IVP (12:09)
[2025-03-03] MEDS: MIDAZOLAM INJ 1 MG/ML VIAL 2 ML 4 MG IVP (12:09)
[2025-03-03] MEDS: BENZOCAINE 20% (Hurricaine) SPRAY 1 DOSE TOP (12:10)
--- NOTE | 2025-03-03 13:43 | ESPR_ITS ---
Documentation for date of: 03/03/25 Subjective Subjective Interval history: CC: Shortness of Breath Patient is a 54-year-old [employer] with a past medical history right middle cerebral artery stroke (2021), TIA (2022), and PFO closure at [facility] by Dr. Ezekiel Méndez (2021), and who is currently following Dr. Melendez in [place]. Patient presented to the emergency room on 02/28/2025 via EMS with chief complain of sudden dyspnea. Patient initially stated experienced acute onset of shortness of breath upon exertion on Saturday morning at approximately 7 AM. Patient denied paroxysmal nocturnal dyspnea and denied orthopnea. Does sleep with 2 pillows but not use to help him breathe better. Patient stated this was the first time he experienced shortness of breath upon exertion. Patient also stated dizziness with shortness of breath. Patient noted increased hearing loss left ear. Patient denied tinnitus. Patient denied syncopal event. Patient denied seizure-like activities. Denied any palpitations. Holter monitor within the last 2 years showed no arrhythmias per patient history. Patient denied any chest pain or chest pressure. Positive for nausea during shortness of breath and dizziness. Denied emesis. Patient also felt cold and clammy. Denied any recent sick contacts. Denied any hematochezia or melena. Denied hypercoagulable workup or family history. Patient was admitted by hospitalist team from stroke rule out. 03/02/2025: Cardiology Consulted for possible CATHIE for LV mural thrombus noted on echo. 03/03/2025: No overnight events. Patient made NPO after midnight. Patient scheduled for CATHIE this afternoon. Patient denied any chest pain, shortness of breath, or palpitations. The echogenic mass noted is an accessory papillary muscle which actually starts at the LV apex. There is no evidence of any LV thrombus. No additional imaging studies needed. Amplatzer PFO device in place and no evidence of any leak. Bubble study was completely negative. Normal LV size and function with estimated EF 55 to 60%. Normal RV function. Mildly dilated RA. No LA or TRESA thrombus. Trace AI mild AR. No pericardial effusion. Please follow up with cardiology, Dr. Guerrero, within one week of discharge. Exam Vital Signs Temp Pulse Resp BP Pulse Ox O2 Del Method O2 Flow Rate 97.2 F 56 L 16 107/72 96 Room Air 3 03/03/25 10:59 03/03/25 13:30 03/03/25 13:30 03/03/25 13:30 03/03/25 13:30 03/03/25 13:30 03/03/25 12:35 Narrative Exam General Appearance: Alert & Oriented X3, well-nourished female who is lying in bed in no acute distress HEENT: Skull symmetrical and atraumatic. Conjunctivae pin and moist. Pupils equal, round, reactive to light and accommodation (PERRL). External ear without lesion or discharge. Straight, nares patient, mucosa pink, no discharge. Cardio: Normal Rate and Rhythm with S1 and S2 heart sounds. No murmurs or extra heart sounds auscultated. No bruits on carotid auscultation. No peripheral edema or cyanosis. Lungs: Symmetric with good expansion. Chest and back non-tender. Breath sounds vesicular without crackles, wheezing or rhonchi Abdomen: Non-tender, Non-distended, Normal Reactive Bowel Sounds Neuro: Alert, cooperative, oriented to person, place, and time. Speech clear. CN grossly intact. Upper motor strength 5/5 and Lower motor strength 5/5. Sensation intact. Objective Labs 03/03/25 04:41 03/03/25 04:41 Labs: Laboratory Results - last 24 hr 03/03/25 04:41 WBC 6.9 RBC 5.12 Hgb 17.3 H Hct 50.4 MCV 98 MCH 33.8 MCHC 34.3 RDW Std Deviation 44.8 H Plt Count 209 Neut % (Auto) 55 Lymph % (Auto) 34 [place] % (Auto) 9 Eos % (Auto) 2 Baso % (Auto) 0 Neut # (Auto) 3.8 Lymph # (Auto) 2.4 [place] # (Auto) 0.6 Eos # (Auto) 0.1 Baso # (Auto) 0.0 Immature Gran # (Auto) 0.01 H Absolute Nucleated RBC 0.00 Immature Gran % 0 Nucleated RBC % 0 PT 11.4 INR 1.0 APTT 29.6 Sodium 140 Potassium 4.4 Chloride 104 Carbon Dioxide 29.9 Anion Gap 6 L BUN 9 Creatinine 1.2 Estim Creat Clear Calc 83.5 eGFR > 60 BUN/Creatinine Ratio 8 L Glucose 100 Calculated Osmolality 278 Calcium 9.0 Corrected Calcium 9.0 Phosphorus 2.6 Magnesium 2.1 Total Bilirubin 0.8 AST 23 ALT 19 Alkaline Phosphatase 52 Total Protein 6.9 Albumin 4.0 Globulin 2.9 Albumin/Globulin Ratio 1.4 Quality Measures Quality Measures stroke (Stroke alert activated at 09:29 AM. ) Suspected type of Stroke: Acute Ischemic (subacute right posterior frontal cva ) Last known well (date): 02/28/25 Last known well (time): 07:00 Tenecteplase given: Reason(s) Tenecteplase not given: H/O intracranial hemorrhage, neoplasm, AVM, or aneurysm not given Rehab services: PT evaluation ordered VTE Prophylaxis: pharmaceutical Antithrombotic by day 2:: ordered Statin ordered: <75 y/o high intensity dose Anticoagulation ordered for A-fib or flutter (current or hx): not indicated Assessment & Plan Assessment Current Active Medications: Generic Name Dose Route Start Last Admin Trade Name Freq PRN Reason Stop Dose Admin Acetaminophen 650 mg 03/01/25 15:06 03/01/25 15:22 Acetaminophen 325 Mg Tablet PO 03/31/25 15:05 650 mg Q6HR PRN Administration pain and Fever >100.3 Aspirin 162 mg 03/03/25 09:00 03/03/25 10:51 Aspirin Ec 81 Mg Tabec PO 04/02/25 08:59 162 mg QDAY MYNOR Administration Atorvastatin Calcium 40 mg 02/28/25 21:00 03/02/25 20:31 Atorvastatin Calcium 20 Mg Tablet PO 03/30/25 20:59 40 mg HS MYNOR Administration Meclizine HCl 25 mg 02/28/25 14:41 03/01/25 08:51 Meclizine Hcl 25 Mg Tablet PO 03/30/25 14:40 25 mg TID PRN Administration VERTIGO Ondansetron HCl 4 mg 02/28/25 11:58 Ondansetron Inj 2 Mg/Ml Inj 2 Ml IVP 03/30/25 11:57 Q6H PRN NAUSEA OR VOMITING Protocol Plan Patient is a 54-year-old [employer]reg[employer] with a past medical history right middle cerebral artery stroke (2021), TIA (2022), and PFO closure at [facility] by Dr. Ezekiel Méndez (2021) who was admitted on 02/28/2025 for stroke rule out with a chief complain of vertigo and dyspnea. #LV Thrombus, less likely Patient noted to have a possible LV thrombus. History of PFO closure, but negative bubble study on echo vs No history of Afib, continue to monitor with telemetry vs VT less likely as unremarkable troponin and EKG unremarkable vs hypercoagulable state. Given past medical history of PFO closure in 2021 at [facility], LV thrombus, and history of stroke/TIA, plan for CATHIE. 03/03/2025: CATHIE unremarkable, please have patient follow up with Cardiology, Dr. Guerrero within one week of discharge. EKG: Sinus Rhythm. No T wave inversion noted. Troponin <0.02 Echo(01/26/2025): Normal LV size and function. Possible LV mural thrombus 1 cm size noted in the apex. Bubble study negative for PFO/ASD.Trace mitral and trace tricuspid regurgitation. No pericardial effusion. Plan: -The echogenic mass noted is an accessory papillary muscle which actually starts at the LV apex. There is no evidence of any LV thrombus. No additional imaging studies needed. Amplatzer PFO device in place and no evidence of any leak. Bubble study was completely negative. Normal LV size and function with estimated EF 55 to 60%. Normal RV function. Mildly dilated RA. No LA or TRESA thrombus. Trace AI mild AR. No pericardial effusion. -Continue Aspirin 81 mg qday #Acute TIA #history of Stroke 2021 and TIA in 2022 #PFO closure with Amplatzer 25x18 mm device in 2021 at [facility] Patient has a past medical history of acute stroke w/ slurred speech per patient history that resolved after several months of PT/speech therapy in 2021 with no residual motor deficits. TIA in 2022 after COVID diagnosis, no residual motor deficits. PFO closure in 2021. Given past medical history, CATHIE recommended. CATHIE in 2021 negative from thrombus per patient history. MRI: Negative for acute hemorrhage mass effect or midline shift. No acute infarct. Large old infarct right middle cerebral artery distribution vs Mutiple punctate foci increased signal in the white matter on flair images, demyelinaitning disease pattern Lipid Panel (03/01/2025): Triglycerides 151, Cholesterol 198, LDL 124, HDL 44 TSH 2.55, A1c 5.0 ASCVD: high intensity statin recommended Plan -Per primary team management -Aspirin 81 mg qday -Atorvastatin 40 mg HS -Neurology consulted Health Maintenance: Disp: Pt is currently admitted to floors for further management of TIA, cardiology consulted for CATHIE. Please have patient follow up within one week of discharge with cardiology, Dr. Guerrero. FEN: resume cardiac diet DVT: compression device Code: Full code - The patient's plan was discussed with attending Dr. Yolanda Horton MD PGY1 Internal Medicine Attending Provider Attestation/Addendum I have personally seen and examined the patient separately on the above date of service and discussed the plan of care with the resident. I reviewed the resident Dr. Mariela Horton consultation progress note and agree with the resident findings and plan in the note above and have also edited the documentation to reflect my findings and plan. Mitch Guerrero M.D. Interventional Cardiology
[2025-03-03] MEDS: ATORVASTATIN CALCIUM 20 MG TABLET 40 MG PO (20:31)
--- NOTE | 2025-03-03 21:10 | ESPR_ITS ---
Documentation for date of: 03/03/25 Subjective Subjective Interval history: Seen in Telemetry at the bedside, no complaints noted. Denies any dz. Tolerating oral diet well, ambulating well. CATHIE was negative for thrombus. Exam - Neurology Vital Signs Temp Pulse Resp BP Pulse Ox O2 Del Method O2 Flow Rate 96.9 F 65 14 117/70 97 Room Air 3 03/03/25 16:00 03/03/25 16:00 03/03/25 16:00 03/03/25 16:03/03/25 16:03/03/25 16:03/03/25 12:35 Narrative Exam GENERAL APPEARANCE: Well hydrated, well-nourished in no acute distress. HEENT: Normocephalic, atraumatic, extraocular movements intact. Pupils: Equal reacting to light and accommodation NECK: Supple, no JVD or bruits. CARDIOVASULAR: Heart: S1, S2 heard, regular without S3-S4 or murmur no rubs or gallops. LUNGS/CHEST: Clear to auscultation bilaterally. No rails, rhonchi, or wheezing. Normal inspection. ABDOMEN: Soft, nontender, with normal bowel sounds. No pulsatile masses. No rebound, rigidity, or guarding. Normal inspection and palpation. EXTREMITIES: Normal inspection and palpation. No edema, clubbing or cyanosis. SKIN: Warm and dry without rashes. Normal inspection. MUSCULOSKELETAL: No cervical, thoracic, lumbar or midline bony tenderness. Normal inspection. NEURO: Alert, awake and oriented x3. Cranial nerves: II through XII grossly intact. Speech and language: Normal with no dysarthria or dysphasia. Motor system: Tone and bulk: Normal: Strength: 5 out of 5 in all 4 extremities; No pronator drift noted. Deep tendon reflexes: 2+ bilaterally symmetrical. Plantar reflex: Downgoing bilaterally. Sensory system: Intact to all modalities of sensation bilaterally. Coordination: Intact to [id number] and [id number] test bilaterally. No ataxia, no dysmetria, or dysdiadochokinesia noted. No intention tremors noted. Gait: Normal. Toe, heel, tandem walk all are normal. Romberg: Negative. No signs of meningeal irritation noted. PSYCHIATRIC: Normal mood and affect. Denies homicidal or suicidal ideation. Objective Labs 03/03/25 04:41 03/03/25 04:41 Labs: Laboratory Results - last 24 hr 03/03/25 04:41 WBC 6.9 RBC 5.12 Hgb 17.3 H Hct 50.4 MCV 98 MCH 33.8 MCHC 34.3 RDW Std Deviation 44.8 H Plt Count 209 Neut % (Auto) 55 Lymph % (Auto) 34 [place] % (Auto) 9 Eos % (Auto) 2 Baso % (Auto) 0 Neut # (Auto) 3.8 Lymph # (Auto) 2.4 [place] # (Auto) 0.6 Eos # (Auto) 0.1 Baso # (Auto) 0.0 Immature Gran # (Auto) 0.01 H Absolute Nucleated RBC 0.00 Immature Gran % 0 Nucleated RBC % 0 PT 11.4 INR 1.0 APTT 29.6 Sodium 140 Potassium 4.4 Chloride 104 Carbon Dioxide 29.9 Anion Gap 6 L BUN 9 Creatinine 1.2 Estim Creat Clear Calc 83.5 eGFR > 60 BUN/Creatinine Ratio 8 L Glucose 100 Calculated Osmolality 278 Calcium 9.0 Corrected Calcium 9.0 Phosphorus 2.6 Magnesium 2.1 Total Bilirubin 0.8 AST 23 ALT 19 Alkaline Phosphatase 52 Total Protein 6.9 Albumin 4.0 Globulin 2.9 Albumin/Globulin Ratio 1.4 Assessment & Plan Assessment and plan (1) TIA (transient ischemic attack): Status: Resolved Assessment and plan: Most likely TIA based on the symptom and no focal deficit and negative MRI brain for acute infarction continue ASA 81 mg for prophylaxis and add statin to bring the LDL down to 70 mg. As he had subdural bleed and the old bleed noted in the MRI brain, plavix is not safe. However, as the TTE showed possible mural LV thrombus, he got CATHIE today that resulted negative. Stable for discharge home on ASA 81 mg and statin. FU in 2 weeks. (2) Old cerebrovascular accident (CVA) without late effect: Status: Chronic Assessment and plan: MRI brain findings consistent with old infarct with hemosiderin deposition from old bleed Scattered white matter changes suggestive of chronic microvascular disease or migraine and Not significant for demyelination.
[2025-03-04] VITALS (7 sets, daily range): BP systolic 107–130; BP diastolic 65–76; PULSE 52–81; RESP 13–20; TEMP 36.3–36.8; O2SAT 97–98; BMI 28.8; BMI 29.0
[2025-03-04] MEDS: ASPIRIN EC 81 MG TABEC 162 MG PO (08:16)
--- NOTE | 2025-03-04 13:46 | ESDS_ITS ---
<Statement entered by Fozia Gomez MD - 03/09/25 09:00> I reviewed above note and agree with findings and plans. I have also personally examined the patient with medicine team and went over assessment and plan with medical team including geotechnical intern and resident physician. Planned Discharge Date 03/04/25 DS: Providers Provider Date of admission: 02/28/25 11:53 Primary care physician: Ricardo Machado Admitting Provider: Juan Morrell MD Attending Provider on Admission: Fozia Gomez MD Consults: 02/28/25 09:35 Consult to Neurology / Tele-Neurology Routine Comment: Consulting Provider: [facility] 02/28/25 12:01 Consult to Neurology / Tele-Neurology Stat Comment: Consulting Provider: Juan Diego Nesbitt 02/28/25 12:16 Referral Physical Therapy Stat Comment: Physician Instructions: Referral Speech Therapy Stat Comment: 03/02/25 09:33 Consult to Cardiology Stat Comment: Consulting Provider: Mitch Guerrero Attending Provider on DC: Radha Leon MD Discharging Provider: Radha Leon MD DS: Diagnosis Problem List Completed Was Problem List Reviewed/Reconciled?: Yes Hospital Course Hospital Course Hospital course: Patient is a 54-year-old [employer] with a past medical history significant for ischemic stroke in 2021, history of TIA and patent foramen ovale s/p closure presents to [facility] ED after having an episode of severe dizziness. Due to patient's previous history of CVA, stroke alert was called in the ED and patient was seen by telemetry neurologist. CT of head was negative for acute hemorrhage, CTA of head and neck showed 50% stenosis proximal 10 mm right vertebral artery. Patient was admitted to the hospital for full stroke workup including MRI which was negative for stroke and showed demyelinating disease. In-house neurologist Dr. Nesbitt was consulted. Stroke was ruled out, Patient likely had a TIA. As part of stroke workup echocardiogram with bubble study was ordered which showed possible mural thrombus in the left ventricle therefore cardiology was consulted and an CATHIE was ordered to confirm the mural thrombus. Patient underwent CATHIE on 03/03/2025 which was negative for any thrombus. Patient is hemodynamically stable and back to his baseline and cleared from neurology to be discharged home with aspirin 81 mg daily and statin as well as meclizine as needed for dizziness. Patient is advised to follow-up outpatient with rip/mould operator Dr. Guerrero within 1 week after discharge and follow-up with primary care within 1 week after discharge as well as with neurologist Dr. Nesbitt within 2 weeks after discharge. Discharge Recommendations -Follow up with PCP within 2 weeks of discharge -Follow up with Neurologist Dr. Nesbitt within 2 weeks of discharge -Continue rest of medications as previously prescribed -Return to the ED or call EMS if symptoms return and/or worsen Hospitalization Diagnosis #Transient ischemic attack #Vertigo- resolved #Acute CVA -ruled out #Left ventricular mural thrombus- Ruled out #Hx. of PFO s/p closure #Hx of ischemic stroke #Hx of TIA Assessment and plan discussed with my attending physician Dr. Jason Leon (PGY-1)- Internal medicine resident Time Spent with Patient Time attestation: Total time spent providing and/or coordinating discharge services: Time spent: Greater than 30 minutes Exam Vital Signs Temp Pulse Resp BP Pulse Ox O2 Del Method O2 Flow Rate 97.3 F 67 18 114/72 98 Room Air 3 03/04/25 08:00 03/04/25 12:00 03/04/25 08:00 03/04/25 08:00 03/04/25 08:00 03/04/25 08:00 03/03/25 12:35 Discharge Plan Plan Patient Disposition: HOME (Self Care) Patient condition on transfer: Stable Care Plan Goals: -Follow up with PCP within 2 weeks of discharge -Follow up with Neurologist Dr. Nesbitt within 2 weeks of discharge -Continue rest of medications as previously prescribed -Return to the ED or call EMS if symptoms return and/or worsen Prescriptions/Referrals Prescriptions/Med Rec: New atorvastatin 40 mg tablet 40 mg PO HS 30 Days Qty: 30 0RF meclizine 25 mg Tablet 25 mg PO TID PRN (Reason: Vertigo) 10 Days Qty: 15 0RF Continued aspirin [Adult Low Dose Aspirin] 81 mg tablet,delayed release (DR/EC) 81 mg PO .QHS Referrals: Ricardo Machado [Primary Care Provider] - Patient/Caregiver Discharge Instructions Education Materials: What Is a TIA?, ED TIA: Transient Ischemic Attack Print Language: Tajik Stand Alone Forms: [facility] Award Info., Patient Portal Info Letter Discharge Order Discharge Orders: Discharge (Routine); Ordered 03/04/25 Ordered By: Radha Leon Quality Discharge Quality Measures VTE prophylaxis
--- NOTE | 2025-03-04 13:55 | PD.RESPRO ---
Documentation for date of: 03/04/25 Subjective Subjective Interval history: Patient is a 54-year-old [employer] with a past medical history right middle cerebral artery stroke (2021), TIA (2022), and PFO closure at [facility] by Dr. Ezekiel Méndez (2021), and who is currently following Dr. Melendez in [place]. Patient presented to the emergency room on 02/28/2025 via EMS with chief complain of sudden dyspnea. Patient initially stated experienced acute onset of shortness of breath upon exertion on Saturday morning at approximately 7 AM. Patient denied paroxysmal nocturnal dyspnea and denied orthopnea. Does sleep with 2 pillows but not use to help him breathe better. Patient stated this was the first time he experienced shortness of breath upon exertion. Patient also stated dizziness with shortness of breath. Patient noted increased hearing loss left ear. Patient denied tinnitus. Patient denied syncopal event. Patient denied seizure-like activities. Denied any palpitations. Holter monitor within the last 2 years showed no arrhythmias per patient history. Patient denied any chest pain or chest pressure. Positive for nausea during shortness of breath and dizziness. Denied emesis. Patient also felt cold and clammy. Denied any recent sick contacts. Denied any hematochezia or melena. Denied hypercoagulable workup or family history. Patient was admitted by hospitalist team from stroke rule out. 03/03/2025: No overnight events. Patient made NPO after midnight. Patient scheduled for CATHIE this afternoon. Patient denied any chest pain, shortness of breath, or palpitations. The echogenic mass noted is an accessory papillary muscle which actually starts at the LV apex. There is no evidence of any LV thrombus. No additional imaging studies needed. Amplatzer PFO device in place and no evidence of any leak. Bubble study was completely negative.Normal LV size and function with estimated EF 55 to 60%. Normal RV function. Mildly dilated RA. No LA or TRESA thrombus. Trace AI mild AR. No pericardial effusion. Please follow up with cardiology, Dr. Guerrero, within one week of discharge. 03/04/2025: No overnight events. Patient examined at bedside. Patient seen ambulating well. Patient denied hematemesis, hemoptysis, or dysphagia. Patient tolerating breakfast well after CATHIE. Denied chest pain, palpitations, or shortness of breath. No please follow up with cardiology Exam Vital Signs Temp Pulse Resp BP Pulse Ox O2 Del Method O2 Flow Rate 97.3 F 67 18 114/72 98 Room Air 3 03/04/25 08:00 03/04/25 12:00 03/04/25 08:00 03/04/25 08:00 03/04/25 08:00 03/04/25 08:00 03/03/25 12:35 Narrative Exam General Appearance: Alert & Oriented X3, well-nourished female who is lying in bed in no acute distress HEENT: Skull symmetrical and atraumatic. Conjunctivae pin and moist. Pupils equal, round, reactive to light and accommodation (PERRL). External ear without lesion or discharge. Straight, nares patient, mucosa pink, no discharge. Cardio: Normal Rate and Rhythm with S1 and S2 heart sounds. No murmurs or extra heart sounds auscultated. No bruits on carotid auscultation. No peripheral edema or cyanosis. Lungs: Symmetric with good expansion. Chest and back non-tender. Breath sounds vesicular without crackles, wheezing or rhonchi Abdomen: Non-tender, Non-distended, Normal Reactive Bowel Sounds Neuro: Alert, cooperative, oriented to person, place, and time. Speech clear. CN grossly intact. Upper motor strength 5/5 and Lower motor strength 5/5. Sensation intact. Objective Labs 03/03/25 04:41 03/03/25 04:41 Quality Measures Quality Measures stroke (Stroke alert activated at 09:29 AM. ) Suspected type of Stroke: Acute Ischemic (subacute right posterior frontal cva ) Last known well (date): 02/28/25 Last known well (time): 07:00 Tenecteplase given: Reason(s) Tenecteplase not given: H/O intracranial hemorrhage, neoplasm, AVM, or aneurysm not given Rehab services: PT evaluation ordered and Speech Language Pathology eval ordered VTE Prophylaxis: pharmaceutical Antithrombotic by day 2:: ordered Statin ordered: <75 y/o high intensity dose Anticoagulation ordered for A-fib or flutter (current or hx): not indicated Assessment & Plan Assessment Current Active Medications: Generic Name Dose Route Start Last Admin Trade Name Freq PRN Reason Stop Dose Admin Acetaminophen 650 mg 03/01/25 15:06 03/01/25 15:22 Acetaminophen 325 Mg Tablet PO 03/31/25 15:05 650 mg Q6HR PRN Administration pain and Fever >100.3 Aspirin 162 mg 03/03/25 09:00 03/04/25 08:16 Aspirin Ec 81 Mg Tabec PO 04/02/25 08:59 162 mg QDAY MYNOR Administration Atorvastatin Calcium 40 mg 02/28/25 21:00 03/03/25 20:31 Atorvastatin Calcium 20 Mg Tablet PO 03/30/25 20:59 40 mg HS MYNOR Administration Meclizine HCl 25 mg 02/28/25 14:41 03/01/25 08:51 Meclizine Hcl 25 Mg Tablet PO 03/30/25 14:40 25 mg TID PRN Administration VERTIGO Ondansetron HCl 4 mg 02/28/25 11:58 Ondansetron Inj 2 Mg/Ml Inj 2 Ml IVP 03/30/25 11:57 Q6H PRN NAUSEA OR VOMITING Protocol Plan Patient is a 54-year-old [employer] with a past medical history right middle cerebral artery stroke (2021), TIA (2022), and PFO closure at [facility] by Dr. Ezekiel Méndez (2021) who was admitted on 02/28/2025 for stroke rule out with a chief complain of vertigo and dyspnea. #LV Thrombus, less likely Patient noted to have a possible LV thrombus. History of PFO closure, but negative bubble study on echo vs No history of Afib, continue to monitor with telemetry vs AK less likely as unremarkable troponin and EKG unremarkable vs hypercoagulable state. Given past medical history of PFO closure in 2021 at [facility], LV thrombus, and history of stroke/TIA, plan for CATHIE. 03/03/2025: CATHIE unremarkable, please have patient follow up with Cardiology, Dr. Guerrero within one week of discharge. EKG: Sinus Rhythm. No T wave inversion noted. Troponin <0.02 Echo(01/26/2025): Normal LV size and function. Possible LV mural thrombus 1 cm size noted in the apex. Bubble study negative for PFO/ASD.Trace mitral and trace tricuspid regurgitation. No pericardial effusion. Plan: -The echogenic mass noted is an accessory papillary muscle which actually starts at the LV apex. There is no evidence of any LV thrombus. No additional imaging studies needed. Amplatzer PFO device in place and no evidence of any leak. Bubble study was completely negative. Normal LV size and function with estimated EF 55 to 60%. Normal RV function. Mildly dilated RA. No LA or TRESA thrombus. Trace AI mild AR. No pericardial effusion. -Continue Aspirin 81 mg qday -Doing well post CATHIE and no complications. No problems with swallowing and recommended to follow up with cardiology in 1 week. #Acute TIA #history of Stroke 2021 and TIA in 2022 #PFO closure with Amplatzer 25x18 mm device in 2021 at [facility] Patient has a past medical history of acute stroke w/ slurred speech per patient history that resolved after several months of PT/speech therapy in 2021 with no residual motor deficits. TIA in 2022 after COVID diagnosis, no residual motor deficits. PFO closure in 2021. Given past medical history, CATHIE recommended. CATHIE in 2021 negative from thrombus per patient history. MRI: Negative for acute hemorrhage mass effect or midline shift. No acute infarct. Large old infarct right middle cerebral artery distribution vs Mutiple punctate foci increased signal in the white matter on flair images, demyelinaitning disease pattern Lipid Panel (03/01/2025): Triglycerides 151, Cholesterol 198, LDL 124, HDL 44 TSH 2.55, A1c 5.0 ASCVD: high intensity statin recommended Plan -Per primary team management -Aspirin 81 mg qday -Atorvastatin 40 mg HS -Neurology consulted Health Maintenance: Disp: Pt is currently admitted to floors for further management of TIA, cardiology consulted for CATHIE. Please have patient follow up within one week of discharge with cardiology, Dr. Guerrero. FEN: resume cardiac diet DVT: compression device Code: Full code - The patient's plan was discussed with attending Dr. Yolanda Horton MD PGY1 Internal Medicine Attending Provider Attestation/Addendum I have personally seen and examined the patient separately on the above date of service and discussed the plan of care with the resident. I reviewed the resident Dr. Mariela Horton consultation progress note and agree with the resident findings and plan in the note above and have also edited the documentation to reflect my findings and plan. Mitch Guerrero M.D. Interventional Cardiology
== END 2025-03-04 16:13 | disposition home or self-care (01) | DRG 69 ==
LOC: SERX 10:36 → SERHOLD 12:20 → S2NX 14:04
PROVIDERS: Internal Medicine Cardiovascular Disease; Admitting Provider Internal Medicine; Emergency Provider Family Medicine; PCP Family Medicine; Visit Provider Internal Medicine
PROC: (CPT 93312; principal; 2025-03-03 11:15)
DX: G45.9 Transient cerebral ischemic attack, unspecified (principal); G93.89 Other specified disorders of brain; H91.92 Unspecified hearing loss, left ear; E78.5 Hyperlipidemia, unspecified; Z66 Do not resuscitate; Z87.74 Personal history of (corrected) congenital malformations of heart and circulatory system; Z82.49 Family history of ischemic heart disease and other diseases of the circulatory system; Z86.73 Personal history of transient ischemic attack (TIA), and cerebral infarction without residual deficits; Z79.82 Long term (current) use of aspirin; Z79.899 Other long term (current) drug therapy
CPT/HCPCS: 36415; 70450; 70496; 70498; 70544; 71045; 80053; 80061; 80307; 80320; 81001; 82607; 83036; 83735; 83880; 84100; 84439; 84443; 84484; 85025; 85610; 85730; 87086; 92610; 93005; 93306; 93312; 96361; 96374; 97161; 99152; 99291; A4649; J2250; J2405; J3010; J7030; Q9967; A9270; G0480